=== PATIENT | male | born 1950 | race Caucasian/White ===

== ENCOUNTER 2020-01-08 04:48 | Inpatient (IN) | payer MEDICARE, MEDICAID, SELFPAY ==
[2020-01-08] VITALS (19 sets, daily range): BP systolic 79–111; BP diastolic 40–60; PULSE 100–122; RESP 20–28; TEMP 36.3–37.3; O2SAT 96–98; BMI 25.8
--- NOTE | ~2020-01-08 | XR_ITS ---
EXAMINATION: XR chest 1V portable EXAM DATE: 01/08/2020 10:51 INDICATION: Shortness of breath, congestion, flulike symptoms. TECHNIQUE: Portable AP frontal chest x-ray was obtained. Comparison is made to prior examination from 01/08/2020. FINDINGS: There is patchy bilateral atelectasis and/or pneumonia. There are small bilateral pleural e ffusions. There is cardiomegaly and congestion.There are bony degenerative changes. IMPRESSION: 1. Patchy bibasilar atelectasis and/or pneumonia. 2. Cardiomegaly and small pleural effusions. Reviewed, dictated and finalized at location A. HITE DISK ASSEMBLER
--- NOTE | ~2020-01-08 | US_ITS ---
EXAMINATION: US venous doppler [facility] DATE: 01/08/2020 13:20 INDICATION: Shortness of breath, elevated d-dimer TECHNIQUE: Mason scale images without and with compression and Doppler images of the bilateral lower e xtremity veins were obtained. COMPARISON: None. FINDINGS: The right common femoral vein, profunda femoral vein, femoral vein, popliteal vein, peroneal trunk, p osterior tibial veins, and greater saphenous vein are patent. The left common femoral vein, profunda femoral vein, femoral vein, popliteal vein, peroneal trunk, po sterior tibial veins, and greater saphenous vein are patent. IMPRESSION: 1. Patent bilateral lower extremity veins. No evidence of deep venous thrombosis. Reviewed, dictated and finalized at location A. ANT PRINT OPERATOR IMPRESSION: 1. Patent bilateral lower extremity veins. No evidence of deep venous thrombosi s.
--- NOTE | ~2020-01-08 | XR_ITS ---
XR chest 1V portable DATE: 01/08/2020 05:29 INDICATION: Cough, shortness of breath TECHNIQUE: Portable AP chest on 01/08/2020 at 0525 hours COMPARISON: 04/23/2019 AP and lateral views FINDINGS: There is patchy infiltrate/consolidation in the right mid and lower lung zone suggestive of pneumonia. Aspiration is an additional consideration. There is mild infiltrate and/or atelectasis at the left lung base. There are low lung volumes. Mild blunting of the costophrenic angles suggests small pleural effusions. Heart size is not optimally evaluated due to magnification associated with AP projection and rotation . Pulmonary vascularity appears within normal limits. No pneumothorax. Left apical capping. Osteopenia. Osteoarthritic changes at the glenohumeral joints. IMPRESSION: Patchy infiltrate/consolidation in the right lower lung zones suggesting pneumonia. Aspir ation is an additional consideration Mild infiltrate or atelectasis at the left lung base. Small pleural effusions Reviewed, dictated and finalized at location A. T CLOSER IMPRESSION: Patchy infiltrate/consolidation in the right lower lung zones sugge sting pneumonia. Aspiration is an additional consideration Mild infiltrate or atelectasis at the left lung base. Small pleural effusions
--- NOTE | 2020-01-08 04:56 | ECG_ITS ---
Measurements Intervals [place] Rate: 118 P: 33 MI: 170 QRS: -4 QRSD: 101 T: 104 QT: 317 QTc: 446 Interpretive Statements SINUS TACHYCARDIA EARLY PRECORDIAL R/S TRANSITION VOLTAGE CRITERIA FOR LVH INFERIOR INFARCT, AGE INDETERMINATE ST-T WAVE ABNORMALITY IN LATERAL LEADS- CONSIDER ISCHEMIA BASELINE ARTIFACT- AVF ABNORMAL ECG Electronically Signed On 01-08-2020 7:15:59 RESIDENTIAL THERAPIST by Brian Hwang D.O.
--- NOTE | 2020-01-08 05:04 | ED.SOB ---
HPI - SOB/Dyspnea General Chief Complaint: Shortness of Breath/Dyspnea Stated Complaint: SOB Source: EMS Mode of arrival: ambulatory Limitations: language barrier and altered mental status History of Present Illness HPI Narrative: 69 y.o. with asthma and chronic systolic heart failure became SOB last PM. EMS contacted ~ 4:00. Pt's pulse ox of 76% on room air. Pt obtunded on arrival which improved with oxygen. Pt is poor historian. States has been coughing sometimes. Most questions go unanswered. Context: other (Influenza is prominent in the community.) Related Data Home oxygen amount: none Home Medications Medication Instructions Recorded Confirmed carvedilol 6.25 mg tablet 6.25 mg PO BID tablet 11/28/19 01/08/20 clotrimazole 1 % topical cream 1 applic TOPICAL Q12H 11/28/19 01/08/20 ferrous sulfate 325 mg (65 mg 325 mg PO DAILY 11/28/19 01/08/20 iron) tablet fluticasone 250 mcg-salmeterol 50 1 inhalation INHALATION BID 11/28/19 01/08/20 mcg/dose blistr powdr for inhalation furosemide 20 mg tablet 20 mg PO DAILY tablet 11/28/19 01/08/20 hydrocortisone 1 % topical cream 1 applic TOPICAL BID PRN 11/28/19 01/08/20 ipratropium 20 mcg-albuterol 100 1 puff INHALATION QID 11/28/19 01/08/20 mcg/actuation mist for inhalation ketoconazole 2 % topical cream 1 applic TOPICAL WEEKLY gm 11/28/19 01/08/20 lisinopril 5 mg tablet 5 mg PO DAILY 11/28/19 01/08/20 omeprazole 20 mg capsule,delayed 20 mg PO DAILY 11/28/19 01/08/20 release potassium chloride 10 mEq 20 meq PO DAILY 11/28/19 01/08/20 capsule,extended release pravastatin 20 mg tablet 20 mg PO DAILY 11/28/19 01/08/20 prednisone 10 mg tablet 10 mg PO DAILY 11/28/19 01/08/20 quetiapine 200 mg tablet 200 mg PO DAILY tablet 11/28/19 01/08/20 spironolactone 25 mg tablet 12.5 mg PO DAILY 11/28/19 01/08/20 famotidine 20 mg tablet 20 mg PO BID 12/02/19 01/08/20 Allergies Allergy/AdvReac Type Severity Reaction Status Date / Time No Known Allergies Allergy Verified 12/02/19 15:16 Review of Systems Review of Systems: ROS unobtainable: other (limited ROS because of somnolence and mental status. ) Cardiovascular: Cardiovascular: Denies chest pain Respiratory: Respiratory: Reports cough (occasional) PMFSH Past Medical History Medical History Addisons disease Anxiety Asthma Elevated lipids GERD (gastroesophageal reflux disease) Heart failure chronic systolic heart failure. 09/06 echo:EF = 20-25%, mod. LV dysfunction Mental disability Surgical History Surgical History History of cardiac catheterization Social History Social History Smoking status: Never smoker Alcohol intake: never Substance use: never Additional living arrangements comments: [facility] - assisted living. Gender identity (if verbalized by the patient): Male Spiritual care concerns: No Agree to blood products: Yes Exam Narrative: Exam Narrative: Eyes open with voice. Answers questions. Occasional cough. Knows he's in a hospital. Const: Limitations: altered mental status HENMT: Head: normal to inspection Face and sinus: no sinus tenderness Mouth: Yes moist mucous membranes Eyes: EOM: EOMs intact bilaterally Neck: Neck: no lymphadenopathy Chest: Chest palpation & inspection: normal inspection of the chest Other: no intercostal retractions. Resp: Auscultation: wheezes and breath sounds absent Cardio: Rate: regular rate Rhythm: regular rhythm Heart sounds: no murmurs GI: GI Palp: Yes Soft to palpation and No Tenderness to palpation present (GI) Neuro: General: moves all extremities Extrem: General: no pedal edema and edema Psych: Mental Status: mental status grossly normal Thought content: Yes other (unable to assess. ) Course Course Emergency Course: Pt has right sided pne
[2020-01-08 05:24] LABS: Hematocrit 35.6 % (37.0-46.0); Hemoglobin 11.9 g/dL (12.4-15.3); Mean Corpuscular HGB Conc 33.4 g/dL (32.0-36.0); Mean Corpuscular Hemoglobin 32.2 pg (27.0-31.0); Mean Corpuscular Volume 96.2 fL (78.0-102.0); Mean Platelet Volume 10.6 fl (8.7-11.0); Platelet Count Result 206 K/mm3 (150-420); Red Cell Distribution Width 13.6 % (11.6-14.4); White Blood Count 13.3 K/mm3 (4.8-10.8)
[2020-01-08 05:31] LABS: Base Excess ABG 0.9 mmol/L (0-2); Device NASAL CANNULA; HCO3 ABG 23.6 mmol/L (23-29); Modified Allen's Test Pass; Oxygen Content ABG 16.7 %vol (16.0-22.0); Oxygen Saturation ABG 92.8 % (95-97); Oxyhemoglobin 92.2 % (94-100); PCO2 ABG 32.1 mmHg (35-45); PO2 ABG 58.9 mmHg (75-85); Site Drawn RIGHT RADIAL; Total Hemoglobin 12.9 g/dL; pH ABG 7.49 (7.35-7.45)
[2020-01-08 05:45] LABS: Lactic Acid 2.1 mmol/L (0.4-2.0)
[2020-01-08 05:52] LABS: Alanine Aminotransferase 30 U/L (16-63); Albumin Level 3.3 g/dL (3.4-5.0); Alkaline Phosphatase 77 U/L (46-116); Anion Gap 17.2 mmol/L (7-16); Aspartate Amino Transferase 21 U/L (15-37); Bilirubin,Total 1.2 mg/dL (0.00-1.00); Blood Urea Nitrogen 28 mg/dL (7-18); Calcium 8.9 mg/dL (8.5-10.1); Carbon Dioxide 25 mmol/L (21-32); Chloride 100 mmol/L (98-108); Estimated Glomerular Filt Rate 28; Glucose 107 mg/dL (70-99); Osmolality Calculated 291 mOsm/kg (285-295); Potassium 4.2 mmol/L (3.5-5.1); Sodium 138 mmol/L (136-145); Total Protein 7.1 g/dL (6.4-8.2)
[2020-01-08 05:56] LABS: Influenza Control Valid (Valid)
[2020-01-08 05:56] LABS: BNP 238 pg/mL (0-100); Troponin I < 0.02 ng/mL (0.00-0.056)
[2020-01-08] MEDS: SODIUM CHLORIDE 0.9% IV 500 ML 999 ML IV CONT (06:00)
[2020-01-08] MEDS: IPRATROPIUM 0.5 MG/ALBUTEROL SULFATE 2.5 MG AMPUL.NEB 3 ML INHALATION ×2 (06:16→12:35)
--- NOTE | 2020-01-08 06:38 | PC.NURSE ---
call to willy lyn md do resident urgent care for admission.
[2020-01-08] MEDS: HYDROCORTISONE SODIUM SUCCINATE 100 MG/2 ML VIAL IV PUSH (07:50)
--- NOTE | 2020-01-08 08:04 | PC.NURSE ---
pt to floor per stretcher with nanda rivera tech.
--- NOTE | 2020-01-08 08:07 | PC.NURSE ---
Patient brought from ED per stretcher. Able to pivot transfer to bed with stand by assist. IV in left wrist dislodged. IV site discontinued. Portillo catheter in place. Patient alert, drowsy. Answers questions when prompted. Patient's brother Jose De Jesus arrived. Patient and guardian oriented to room, call light within reach
[2020-01-08 10:27] LABS: Add Urine Microscopic? NO; Appearance Urine Clear (Clear); Bilirubin Urine Negative (Negative); Blood Urine Negative (Negative); Color Urine Yellow (Yellow); Glucose Urine UA Negative (Negative); Ketones Urine Negative (Negative); Leukocyte Esterase Ur Negative (Negative); Nitrate Urine Negative (Negative); Protein Urine Negative (Negative); Specific Grav Ur 1.015 (1.010-1.020); Urobilinogen Urine 0.2 mg/dL (0.2-1.0)
[2020-01-08] MEDS: ENOXAPARIN 30 MG/0.3 ML SYRINGE SUB-Q (10:28)
[2020-01-08] MEDS: SODIUM CHLORIDE 0.9% IV 1,000 ML 125 ML IV CONT (10:29)
--- NOTE | 2020-01-08 10:38 | PM.IMHP ---
H&P: HPI History of Present Illness Chief complaint: SOB <Ena Davis, FREIGHT SALES BROKER - Last Filed: 01/08/20 14:27> Narrative: Robles Pate is a 69 year old male admitted yesterday evening via ambulance from [place], [place] due to hypoxia with hypoxemia ([id number]% on room air), worsening shortness of breath, dyspnea, wheezing, cough, obtunded with altered mental status, and hypotension. SBPs 70-80s for arms and extremities cold and pale to the touch. Oxygenation improved his mental status per ED physician report. He was found + Influenza A and was started on IV steroids and Antivirals. He has a history of Mental disability, asthma, Cardiomyopathy, Heart Failure (with 2017 Echo:EF = 20-25%, mod. LV dysfunction), Chronic Systolic Heart Failure, Congestive Heart Failure, learning deficits, Roger's disease, Anxiety, Elevated lipids, GERD (gastroesophageal reflux disease). Robles is a poor health historian and I have spoken to his brother. History of Cardiac Catherization. His brother states that Robles has no alcohol use or history, and no drug use or history, and has never smoked. ED physician has discussed with Jose De Jesus (ZENOBIA) possible palliative care if Robles does not improve. He was started on IV Azithro and IV Rocephin. CXR shows what appears to be bilateral pneumonia, but image is poor quality, so ordered repeat CXR to review. Upon admission to the floor as Inpatient, continuous pulse oximetry monitoring, sputum culture, incentive spirometry, mucinex, and IV Vanc was also started. He continues to deny headache, chest pain, or pain of any location. He is also having acute renal failure with creatinine 2.31 (last creatinine on 04/23/2019 was 1.31 with GFR 58) possibly due to dehydration and/or level of heart failure with a component of possible multi-organ failure. Was given 250 ml IV bolus in ED and started on IVFs continuously at 125ml/hr with continuous Telemetry monitoring. Currently holding home doses of Lasix, Spironolactone, and Lisinopril. Upon discussion, the patient knows his birthdate, that he is in the hospital, but is unable to tell me the town or the month or the season at this time. He does recognize his brother Jose De Jesus and has made specific food requests to nursing staff. Upon discussion with Robles's POA Jose De Jesus, Jose De Jesus is ok with the use of BiPap and any non-invasive respiratory support needed, and also ok with IV medications as needed, including pressors and inotropes. He has been a resident of [facility] for some time now, uses his own walker for ambulation, has assistance with his ADLs such as bathing, and is reportedly continent of urine and stool with no use of Depends. He does have a history of mental disabilities in grade school and high school. He is able to answer simple questions and carry out simple commands. Robles is a DNI and DNR status. (neither family or patient wants breathing tube/intubation/or life support). His PCP is Dr. Orourke of [place], [place]. He has two brothers that share POA control, Jose De Jesus Pate of [place], [place] and Kyler Pate of [place], [place]. Upon rounds today, Dr. Tamez and I feel that the patient should be transferred to receive higher level of care, including inotropes and further continuous respiratory support, that [facility] is unable to provide at this time. I have called [facility] and [facility] of [place], [place]. to start the transfer process, but was told that both hospitals are full and cannot take patient's at this time. I currently have also called [facility] and now waiting for them to return my phone call. <Ena Davis FREIGHT SALES BROKER - Last Filed: 01/08/20 14:27> Review of Systems Review of Systems: All systems reviewed & are unremarkable except as noted in HPI and below <Ena Davis NP - Last Filed: 01/08/20 14:27> ROS unobtainable: other (limited ROS because of somnolence and mental status. ) <Ena Davis NP - Last Filed:
[2020-01-08 11:11] LABS: D Dimer 2.44 mg/L (0.19-0.50)
[2020-01-08 11:21] LABS: Creatine Kinase 117 U/L (39-308); Magnesium 1.7 mg/dL (1.8-2.4); Phosphorus 2.2 mg/dL (2.6-4.7); Troponin I < 0.02 ng/mL (0.00-0.056)
[2020-01-08 13:08] LABS: Base Excess ABG -2.8 mmol/L (0-2); HCO3 ABG 19.6 mmol/L (23-29); Oxygen Content ABG 16.5 %vol (16.0-22.0); Oxygen Saturation ABG 99.2 % (95-97); Oxyhemoglobin 97.5 % (94-100); PCO2 ABG 27.2 mmHg (35-45); PO2 ABG 194.8 mmHg (75-85); Total Hemoglobin 11.7 g/dL; pH ABG 7.48 (7.35-7.45)
[2020-01-08 13:09] LABS: Hematocrit 31.3 % (37.0-46.0); Hemoglobin 10.5 g/dL (12.4-15.3); Mean Corpuscular HGB Conc 33.5 g/dL (32.0-36.0); Mean Corpuscular Hemoglobin 32.1 pg (27.0-31.0); Mean Corpuscular Volume 95.7 fL (78.0-102.0); Mean Platelet Volume 10.9 fl (8.7-11.0); Platelet Count Result 183 K/mm3 (150-420); Red Blood Count 3.27 M/mm3 (4.70-6.10); Red Cell Distribution Width 13.6 % (11.6-14.4); White Blood Count 16.6 K/mm3 (4.8-10.8)
[2020-01-08 13:10] LABS: Modified Allen's Test Pass; Site Drawn LEFT RADIAL
[2020-01-08 13:22] LABS: Alanine Aminotransferase 21 U/L (16-63); Albumin Level 2.7 g/dL (3.4-5.0); Alkaline Phosphatase 60 U/L (46-116); Anion Gap 14.9 mmol/L (7-16); Aspartate Amino Transferase 19 U/L (15-37); Bilirubin,Total 1.1 mg/dL (0.00-1.00); Blood Urea Nitrogen 31 mg/dL (7-18); Calcium 7.6 mg/dL (8.5-10.1); Carbon Dioxide 22 mmol/L (21-32); Chloride 101 mmol/L (98-108); Estimated CRCL calculation 23 ml/min; Estimated Glomerular Filt Rate 23; Glucose 174 mg/dL (70-99); Osmolality Calculated 286 mOsm/kg (285-295); Potassium 4.9 mmol/L (3.5-5.1); Sodium 133 mmol/L (136-145); Total Protein 6.1 g/dL (6.4-8.2)
[2020-01-08 13:28] LABS: BNP 255 pg/mL (0-100)
[2020-01-08 13:33] LABS: Device NASAL CANNULA
[2020-01-08 13:34] LABS: Lactic Acid 1.9 mmol/L (0.4-2.0)
[2020-01-08] MEDS: MAGNESIUM SULF 2 GM/WATER 50ML 2 GM/50 ML BAG IVPB (13:38)
[2020-01-08] MEDS: ALBUMIN HUMAN 5% 25 GM/500 ML BTL IV CONT (15:14)
--- NOTE | 2020-01-08 15:18 | PM.DS ---
DS: Diagnosis Admitting Diagnosis Admitting Diagnosis: Sepsis, unspecified organism Septic Shock Pneumonia Influenza A <Ena Davis NP - Last Filed: 01/08/20 16:04> Discharge Diagnosis (1) Sepsis associated hypotension: Onset Date: ~01/07/20 <Ena Davis NP - Last Filed: 01/08/20 16:04> Code(s): A41.9 - Sepsis, unspecified organism; I95.9 - Hypotension, unspecified <Ena Davis NP - Last Filed: 01/08/20 16:04> Status: Acute <Ena Davis NP - Last Filed: 01/08/20 16:04> Assessment and Plan: WBC elevated>13 with elevated Lactic Acid 2.1 hypoxia with hypoxemia ([id number]% on room air), worsening shortness of breath, dyspnea, wheezing, cough, obtunded with altered mental status, hypotension. SBPs 70-80s for arms and extremities cold and pale to the touch. Possibly multifactorial: due to + Influenza A, bilateral pneumonia, heart failure with EF<35%, renal failure. started on IV Azithro and IV Rocephin. CXR shows what appears to be bilateral pneumonia, but image is poor quality, so ordered repeat CXR to review. continuous pulse oximetry monitoring, sputum culture, incentive spirometry, mucinex, and IV Vanc was also started acute renal failure with creatinine 2.31 (last creatinine on 04/23/2019 was 1.31 with GFR 58) possibly due to dehydration and/or level of heart failure with a component of possible multi-organ failure. given 250 ml IV bolus in ED and started on IVFs continuously at 125ml/hr with continuous Telemetry monitoring. Current lower extremity SBPs>90 with MAPs >60. Upper extremities SBPs>80 with MAPs>50 Currently holding home doses of Lasix, Spironolactone, and Lisinopril. Treating with IVFs and IV boluses, checking Neuro status, ausculation of lungs periodically throughout the day, checking cap refill and closely monitoring VS (BPs, HR, SpO2 levels) Repeating Lactic Acid, BNP, ABG, CBC, and CMP this afternoon. Robles is a DNI and DNR status. (neither family or patient wants invasive breathing tube/intubation/or mechanical ventilator life support). PCP is Dr. Orourke of [place], [place]. his two brothers that share POA control, Jose De Jesus Pate of [place], [place] and Kyler Rio of [place], [place]. ZENOBIA Dela Cruz is ok with use of PICC and Central Line IV catheter placement, IV medications including inotropes and pressors, as well as CPAP/BIPAP and mask/hi flow, and any non-invasive respiratory support needed, and also ok with IV medications as needed, Upon rounds today, Dr. Tamez and I feel that the patient should be transferred to receive higher level of care, including inotropes and further continuous respiratory support, that [facility] is unable to provide at this time. I have called [facility] and [facility] of [place], [place]. to start the transfer process, but was told that both hospitals are full and cannot take patient's at this time. I currently have also called [facility] and now waiting for them to return my phone call. <Ena Davis NP - Last Filed: 01/08/20 16:04> (2) Renal failure (ARF), acute on chronic: Onset Date: ~01/07/20 <Ena Davis NP - Last Filed: 01/08/20 16:04> Qualifiers: Acute renal failure type: unspecified Chronic kidney disease stage: stage 4 (severe) Qualified Code(s): N17.9 - Acute kidney failure, unspecified; N18.4 - Chronic kidney disease, stage 4 (severe) <Ena Davis NP - Last Filed: 01/08/20 16:04> Code(s): N17.9 - Acute kidney failure, unspecified; N18.9 - Chronic kidney disease, unspecified <Ena Davis NP - Last Filed: 01/08/20 16:04> Status: Acute <Ena Davis NP - Last Filed: 01/08/20 16:04> Assessment and Plan: attempting to maintain MAPs >65 ideally, MAPs >60 minimally per BLE blood pressure checks. acute renal failure with creatinine 2.31 (last creatinine on 04/23/2019 was 1.31 with GFR 58) possibly due to
[2020-01-08] MEDS: SODIUM CHLORIDE 0.9% IV 1,000 ML 500 ML IV CONT (15:37)
[2020-01-08] MEDS: FUROSEMIDE INJ 40 MG/4 ML VIAL IV PUSH (15:55)
--- NOTE | 2020-01-08 16:30 | PC.NURSE ---
[facility] here for patient transport to [facility] in [place]. Belongings sent with patient. Receiving facility notified
[2020-01-11 05:07] LABS: Cortisol Random 19.1 mcg/dL (***)
[2020-01-11 05:35] LABS: Adrenocorticotropic Hormone 22 pg/mL (6-50)
== END 2020-01-08 16:30 | disposition short-term general hospital (02) | DRG 871 ==
LOC: CHSED 07:03 → CHS2ND 07:04
PROVIDERS: Nurse Practitioner; Admitting Provider Family Medicine; Emergency Provider Family Medicine; PCP Internal Medicine; Visit Provider Family Medicine
DX: J10.00 Influenza due to other identified influenza virus with unspecified type of pneumonia (principal); N17.9 Acute kidney failure, unspecified; N18.4 Chronic kidney disease, stage 4 (severe); I50.22 Chronic systolic (congestive) heart failure; E27.1 Primary adrenocortical insufficiency; J45.909 Unspecified asthma, uncomplicated; E78.5 Hyperlipidemia, unspecified; K21.9 Gastro-esophageal reflux disease without esophagitis; F79 Unspecified intellectual disabilities; A41.89 Other specified sepsis; I42.9 Cardiomyopathy, unspecified; R65.20 Severe sepsis without septic shock
CPT/HCPCS: 36415; 36600; 71045; 80053; 81003; 82024; 82533; 82550; 82553; 82805; 83605; 83735; 83880; 84100; 84484; 85027; 85380; 87040; 87081; 87086; 87804; 93005; 93970; 94640; 96365; 96375; 99283; 99285; A9270; J0456; J0696; J1650; J1720; J1940; J3370; J3475; J7030; J7040; P9045

== ENCOUNTER 2020-04-01 17:28 | Observation (INO) | payer MEDICARE, MEDICAID, SELFPAY ==
[2020-04-01] VITALS (9 sets, daily range): BP systolic 119–150; BP diastolic 71–107; PULSE 89–118; RESP 15–24; TEMP 36.5–37; O2SAT 95–100; BMI 25.0
--- NOTE | ~2020-04-01 | XR_ITS ---
EXAMINATION: XR chest 2V EXAM DATE: 04/01/2020 18:18 INDICATION: Syncope. TECHNIQUE: Frontal and lateral projections of the chest obtained and reviewed. Comparison is made to prior examination from 01/08/2020. FINDINGS: The cardiac silhouette is enlarged. Cardiac silhouette is stable in size compared to prior exam. Linear by basilar scarring or atelectasis again noted. No confluent consolidation, pneumothorax or pleural effusion suspected. There are bony degenerative changes. Thoracolumbar chronic appearing compression fractures. IMPRESSION: 1. Cardiomegaly. 2. Basilar linear atelectasis. Reviewed, dictated and finalized at location A.
--- NOTE | ~2020-04-01 | CT_ITS ---
EXAMINATION: CT brain wo con EXAM DATE: 04/01/2020 18:17 INDICATION: Syncope. TECHNIQUE: Spiral CT of the head was performed without contrast. Axial, coronal and sagittal images were reviewed. The dose-length product (DLP) for this examination was 756.67 mGy-cm. The exposure w as tailored according to patient size, and iterative reconstruction (ASIR) was used as additional dos e reduction technique. Comparison is made to prior examination from 02/06/2019. FINDINGS: There is no acute intraparenchymal hemorrhage. No evidence of intraparenchymal brain mass lesion. No evidence of acute infarction. Please note that initial head CT has limited sensitivity f or small or acute infarctions. There is mild periventricular and subcortical hypodensity, nonspecific but probably related to small vessel ischemic disease. There is moderate prominence of the sulci a nd ventricles related to cerebral atrophy. There is intracranial carotid arteriosclerosis. There a re no extra-axial collections. There is no mass effect or midline shift. The orbits are unremarkabl e. Soft tissue is unremarkable. Mild mucoperiosteal thickening. IMPRESSION: 1. No acute intracranial findings. 2. Chronic age related findings. Reviewed, dictated and finalized at location A.
--- NOTE | ~2020-04-01 | CT_ITS ---
EXAMINATION: CT chest abdomen pelvis wo con DATE: 04/02/2020 11:55 INDICATION: Nausea and vomiting. TECHNIQUE: Computed tomography (CT) of the chest, abdomen, and pelvis was performed without intraveno us contrast. Automated exposure control and iterative reconstruction technique were employed. The dos e-length product was 627.21 mGy-cm. COMPARISON: None FINDINGS: CHEST CT: There is mild scarring at the lung apices. There is mild atelectasis in the inferior lungs. A calcifi ed right lung nodule is consistent with old granulomatous disease. There are trace pleural effusions. There is left ventricular enlargement of the heart. No pericardial effusion. There are coronary jeremy ry calcifications. There is bilateral gynecomastia. There are chronic burst fractures of T8-T11. Ther e is mild chronic anterior wedging of T5-T7 vertebral bodies. ABDOMEN/PELVIS CT: The liver, spleen, gallbladder, pancreas, and adrenal glands are normal. There are cysts in the kidne ys measuring up to 5.2 cm on the left. There is no urolithiasis. The prostate is moderately enlarged. There is diverticulosis of the colon without evidence of diverticulitis There are no dilated loops o f bowel. The appendix is normal. There is a small sliding hiatal hernia. There are no pathologically enlarged lymph nodes. There is no free intraperitoneal fluid. There is an umbilical hernia containing fat. There is advanced right hip osteoarthritis. IMPRESSION: 1. Umbilical hernia containing fat. Reviewed, dictated and finalized at location A.
--- NOTE | 2020-04-01 17:38 | ED.SYNCOPE ---
HPI - Syncope General Chief Complaint: Syncope Stated Complaint: AMB Time Seen by Provider: 04/01/20 17:30 Source: patient and EMS Mode of arrival: EMS History of Present Illness HPI narrative: 69-year-old man with a history of heart failure, asthma, and Juana Diaz's disease brought to the emergency department by EMS after he felt like he had a hot flash. His spinning bath person said he seemed a bit confused and out of it. He did not lose consciousness and on arrival by EMS he was sitting at the kitchen table and alert. Patient denies headache, chest pain. History is limited due to his mental disability. MD complaint: other (Hubbard hot flash, altered mental status) Onset (ago): hour(s) (1) -: minutes(s) Prodromal symptoms: none Injuries sustained associated with event: none Current symptoms: none Treatments prior to arrival: none Related Data Home Medications Medication Instructions Recorded Confirmed carvedilol 6.25 mg tablet 6.25 mg PO BID tablet 11/28/19 04/01/20 clotrimazole 1 % topical cream 1 applic TOPICAL Q12H 11/28/19 04/01/20 ferrous sulfate 325 mg (65 mg 325 mg PO DAILY 11/28/19 04/01/20 iron) tablet fluticasone 250 mcg-salmeterol 50 1 inhalation INHALATION BID 11/28/19 04/01/20 mcg/dose blistr powdr for inhalation furosemide 20 mg tablet 20 mg PO DAILY tablet 11/28/19 04/01/20 hydrocortisone 1 % topical cream 1 applic TOPICAL BID PRN 11/28/19 04/01/20 ipratropium 20 mcg-albuterol 100 1 puff INHALATION QID 11/28/19 04/01/20 mcg/actuation mist for inhalation ketoconazole 2 % topical cream 1 applic TOPICAL WEEKLY gm 11/28/19 04/01/20 lisinopril 5 mg tablet 5 mg PO DAILY 11/28/19 04/01/20 omeprazole 20 mg capsule,delayed 20 mg PO DAILY 11/28/19 04/01/20 release potassium chloride 10 mEq 20 meq PO DAILY 11/28/19 04/01/20 capsule,extended release pravastatin 20 mg tablet 20 mg PO HS 11/28/19 04/01/20 prednisone 10 mg tablet 10 mg PO DAILY 11/28/19 04/01/20 quetiapine 200 mg tablet 200 mg PO HS tablet 11/28/19 04/01/20 spironolactone 25 mg tablet 12.5 mg PO DAILY 11/28/19 04/01/20 famotidine 20 mg tablet 20 mg PO BID 12/02/19 04/01/20 carbamide peroxide [Debrox] 3 drp OTIC (EAR) WEEKLY 04/01/20 04/01/20 ergocalciferol (vitamin D2) 50,000 unit PO WEEKLY 04/01/20 04/01/20 [Vitamin D2] phenyleph-min oil-petrolatum 1 applic NC QAM AND QHS PRN 04/01/20 04/01/20 [Preparation H] triamcinolone acetonide 1 applic TOPICAL PRN 04/01/20 04/01/20 Allergies Allergy/AdvReac Type Severity Reaction Status Date / Time No Known Allergies Allergy Verified 12/02/19 15:16 Review of Systems Review of Systems: ROS unobtainable: Yes unobtainable due to mental status PMFSH Past Medical History Medical History Addisons disease Anxiety Asthma Elevated lipids GERD (gastroesophageal reflux disease) Heart failure (~2015) chronic systolic heart failure. 09/06 echo:EF = 20-25%, mod. LV dysfunction Mental disability (Unknown) Surgical History Surgical History History of cardiac catheterization Social History Social History Smoking status: Never smoker Alcohol intake: never Substance use: never Substance use type: does not use Additional living arrangements comments: [facility] - assisted living. Gender identity (if verbalized by the patient): Male Spiritual care concerns: No Agree to blood products: Yes Exam Const: General: no acute distress and alert Limitations: behavioral limitations HENMT: Head: normal to inspection Ears: external ears normal, TM's normal bilaterally and EAC's normal Mouth: Yes Normal oral and palatal mucosa present and Yes moist mucous membranes Throat: posterior oropharynx normal Eyes: Conjunctivae: conjunctivae normal Pupils: Equal, round and reactive pupils present EOM: EOMs intact bila
--- NOTE | 2020-04-01 17:41 | ECG_ITS ---
Measurements Intervals [place] Rate: 101 P: 18 ME: 152 QRS: -8 QRSD: 99 T: 63 QT: 319 QTc: 415 Interpretive Statements SINUS TACHYCARDIA EARLY PRECORDIAL R/S TRANSITION LEFT VENTRICULAR HYPERTROPHY AND ST-T CHANGE CONSIDER INFERIOR INFARCT, AGE INDETERMINATE BORDERLINE ST-T WAVE ABNORMALITY- HIGH LATERAL LEADS ABNORMAL ECG Electronically Signed On 04-01-2020 19:47:17 CDT by Brian Hwang D.O.
[2020-04-01 18:01] LABS: Basophils Absolute Auto 0.02 K/mm3 (0.00-0.10); Basophils Percent Auto 0.2 % (0.0-1.0); Eosinophils Absolute Auto 0.02 K/mm3 (0.02-0.50); Eosinophils Percent Auto 0.2 % (1.0-6.0); Hematocrit 37.1 % (37.0-46.0); Hemoglobin 12.1 g/dL (12.4-15.3); Immature Granulocyte Absolute 0.06 K/mm3 (0.00-0.00); Immature Granulocyte Percent A 0.7 % (0.0-0.0); Lymphocytes Absolute Auto 0.85 K/mm3 (1.10-4.50); Lymphocytes Percent Auto 10.1 % (18.0-42.0); Mean Corpuscular HGB Conc 32.6 g/dL (32.0-36.0); Mean Corpuscular Hemoglobin 31.4 pg (27.0-31.0); Mean Corpuscular Volume 96.4 fL (78.0-102.0); Mean Platelet Volume 10.3 fl (8.7-11.0); Monocytes Absolute Auto 0.73 K/mm3 (0.10-0.90); Monocytes Percent Auto 8.6 % (2.0-11.0); Neutrophils Absolute Auto 6.8 K/mm3 (1.7-7.2); Neutrophils Percent Auto 80.2 % (50.0-70.0); Platelet Count Result 267 K/mm3 (150-420); Red Blood Count 3.85 M/mm3 (4.70-6.10); Red Cell Distribution Width 13.9 % (11.6-14.4); White Blood Count 8.5 K/mm3 (4.8-10.8)
[2020-04-01 18:21] LABS: Alanine Aminotransferase 28 U/L (16-63); Albumin Level 3.6 g/dL (3.4-5.0); Alkaline Phosphatase 96 U/L (46-116); Anion Gap 15.8 mmol/L (7-16); Aspartate Amino Transferase 18 U/L (15-37); Bilirubin,Total 0.4 mg/dL (0.00-1.00); Blood Urea Nitrogen 25 mg/dL (7-18); Carbon Dioxide 25 mmol/L (21-32); Chloride 102 mmol/L (98-108); Estimated Glomerular Filt Rate 43; Glucose 101 mg/dL (70-99); Osmolality Calculated 290 mOsm/kg (285-295); Potassium 4.8 mmol/L (3.5-5.1); Sodium 138 mmol/L (136-145); Total Protein 7.2 g/dL (6.4-8.2)
[2020-04-01 18:22] LABS: Lactic Acid Reflex 1.4 mmol/L (0.4-2.0)
[2020-04-01 18:23] LABS: CRP 1.4 mg/dL (0.0-0.9); Troponin I < 0.02 ng/mL (0.00-0.056)
[2020-04-01 18:30] LABS: D Dimer 0.79 mg/L (0.19-0.50)
[2020-04-01 18:42] LABS: Occult Blood Negative (Negative)
[2020-04-01 19:06] LABS: BNP 65.1 pg/mL (0-100)
--- NOTE | 2020-04-01 20:11 | ADMGEN ---
This patient, Robles Pate, was admitted to 2nd Floor Room 204-2. Patient/family oriented to hospital policies and general routines including ID bracelet, bed and alarms, visiting hours, pain management, procedures, bathroom and other care routines, personal items, smoking policy, room service/diet, and visiting hours. Valuables list has been completed. Information on how to activate the Rapid Response Team has been discussed. Patient/Family are encouraged to report perceived risks to care and to ask questions if they do not understand what they are told or what they should do.
[2020-04-01] MEDS: SODIUM CHLORIDE 0.9% IV 1,000 ML 100 ML IV CONT (21:32)
[2020-04-01] MEDS: PRAVASTATIN SODIUM 20 MG TABLET PO (21:33)
[2020-04-01] MEDS: MICONAZOLE NITRATE 2% CREAM 30 GM TUBE 1 APPLIC TOPICAL (21:33)
[2020-04-01] MEDS: QUEtiapine FUMARATE 100 MG TABLET 200 MG PO (21:33)
--- NOTE | 2020-04-01 23:00 | PC.NURSE ---
pt resting in bed, denies any pain, N/V, tolerating oral fluids, iv fluids infusing per order
--- NOTE | 2020-04-02 | PC.NURSE ---
pt resting in bed, call light and belongings within reach, iv fluids infusing per order, pt voided clear yellow urine
[2020-04-02 00:09] LABS: Add Urine Microscopic? NO; Appearance Urine Clear (Clear); Bilirubin Urine Negative (Negative); Blood Urine Negative (Negative); Color Urine Yellow (Yellow); Glucose Urine UA Negative (Negative); Ketones Urine Negative (Negative); Leukocyte Esterase Ur Negative LEU/UL (Negative); Nitrate Urine Negative (Negative); Protein Urine Negative (Negative); Urobilinogen Urine 0.2 mg/dL (0.2-1.0); pH Urine 6.5 (5.0-8.0)
[2020-04-02 00:23] LABS: Troponin I < 0.02 ng/mL (0.00-0.056)
--- NOTE | 2020-04-02 01:18 | PC.NURSE ---
pt sleeping, respirations even and regular, no evidence of distress noted, call light and belongings within reach
[2020-04-02 04:00] VITALS: BP 113/65; PULSE 96; RESP 18; TEMP 36.6; O2SAT 95
[2020-04-02 05:53] LABS: Basophils Absolute Auto 0.03 K/mm3 (0.00-0.10); Basophils Percent Auto 0.4 % (0.0-1.0); Eosinophils Absolute Auto 0.13 K/mm3 (0.02-0.50); Eosinophils Percent Auto 1.9 % (1.0-6.0); Hematocrit 33.8 % (37.0-46.0); Immature Granulocyte Absolute 0.05 K/mm3 (0.00-0.00); Immature Granulocyte Percent A 0.7 % (0.0-0.0); Lymphocytes Absolute Auto 0.94 K/mm3 (1.10-4.50); Lymphocytes Percent Auto 13.7 % (18.0-42.0); Mean Corpuscular HGB Conc 32.5 g/dL (32.0-36.0); Mean Corpuscular Hemoglobin 31.4 pg (27.0-31.0); Mean Corpuscular Volume 96.6 fL (78.0-102.0); Mean Platelet Volume 10.6 fl (8.7-11.0); Monocytes Percent Auto 13.1 % (2.0-11.0); Neutrophils Absolute Auto 4.8 K/mm3 (1.7-7.2); Neutrophils Percent Auto 70.2 % (50.0-70.0); Platelet Count Result 221 K/mm3 (150-420); White Blood Count 6.9 K/mm3 (4.8-10.8)
[2020-04-02 06:13] LABS: Lactic Acid Reflex 0.9 mmol/L (0.4-2.0)
[2020-04-02 06:21] LABS: Alanine Aminotransferase 24 U/L (16-63); Albumin Level 3.1 g/dL (3.4-5.0); Alkaline Phosphatase 75 U/L (46-116); Anion Gap 14.4 mmol/L (7-16); Aspartate Amino Transferase 15 U/L (15-37); Bilirubin,Total 0.6 mg/dL (0.00-1.00); Blood Urea Nitrogen 20 mg/dL (7-18); Calcium 8.7 mg/dL (8.5-10.1); Carbon Dioxide 26 mmol/L (21-32); Chloride 107 mmol/L (98-108); Estimated CRCL calculation 45 ml/min; Estimated Glomerular Filt Rate 51; Glucose 77 mg/dL (70-99); Osmolality Calculated 297 mOsm/kg (285-295); Potassium 4.4 mmol/L (3.5-5.1); Sodium 143 mmol/L (136-145); Total Protein 5.6 g/dL (6.4-8.2)
[2020-04-02 06:25] LABS: Troponin I < 0.02 ng/mL (0.00-0.056)
--- NOTE | 2020-04-02 07:30 | PC.NURSE ---
fluids infusing, no vomiting noted,
[2020-04-02] MEDS: SODIUM CHLORIDE 0.9% IV 1,000 ML 100 ML IV CONT (07:57)
[2020-04-02 08:00] VITALS: BP 120/69; PULSE 90; RESP 18; TEMP 36.4; O2SAT 95
--- NOTE | 2020-04-02 08:14 | PC.NURSE ---
Oriented to self, knows in a hospital cannot state where, unsure of date, not sure if this is normal for patient, converses easily, talks alot about brother
[2020-04-02 09:11] VITALS: PULSE 90
[2020-04-02] MEDS: MICONAZOLE NITRATE 2% CREAM 30 GM TUBE 1 APPLIC TOPICAL (09:11)
[2020-04-02] MEDS: carvediloL 6.25 MG TABLET PO (09:11)
[2020-04-02] MEDS: FAMOTIDINE 20 MG TABLET PO (09:12)
[2020-04-02] MEDS: PANTOPRAZOLE 40 MG TABLET PO (09:12)
[2020-04-02] MEDS: FUROSEMIDE 20 MG TABLET PO (09:12)
[2020-04-02] MEDS: predniSONE 10 MG TABLET PO (09:12)
[2020-04-02] MEDS: POTASSIUM CHLORIDE 20 MEQ TABLET PO (09:13)
[2020-04-02] MEDS: FERROUS SULFATE 324 MG TABLET PO (09:13)
[2020-04-02] MEDS: ENOXAPARIN 40 MG/0.4 ML SYRINGE SUB-Q (09:13)
[2020-04-02] MEDS: SALMET XINAFT/FLUTIC PROPIN 250 MCG/50 MCG INH CAP 1 PUFF INHALATION (09:14)
[2020-04-02] MEDS: NEOMYCIN/POLYMYXIN/BACITRACIN OINTMENT 15 GM TUBE 1 APPLIC TOPICAL (09:14)
[2020-04-02] MEDS: SPIRONOLACTONE 25 MG TABLET 12.5 MG PO (09:16)
--- NOTE | 2020-04-02 09:25 | PC.NURSE ---
Pills given, nauseated at this time and had emesis of water and some food particles, hospitalist aware and awaiting orders
[2020-04-02] MEDS: ONDANSETRON INJ 4 MG/2 ML VIAL IV PUSH (09:30)
--- NOTE | 2020-04-02 09:32 | PC.NURSE ---
zofran given for pain
[2020-04-02 11:04] LABS: Lipase 140 U/L (73-393)
--- NOTE | 2020-04-02 11:04 | PC.NURSE ---
Up to WC with SBA, to imaging for ct abdomen
--- NOTE | 2020-04-02 11:17 | PC.NURSE ---
Returned from imaging
--- NOTE | 2020-04-02 11:46 | PC.NURSE ---
Up in room with therapy, using walker, able to ambulate with minimal to SBA only
[2020-04-02 11:59] VITALS: BP 121/71; PULSE 89; PULSE 95; RESP 18; TEMP 36.6; O2SAT 95
--- NOTE | 2020-04-02 12:00 | PC.NURSE ---
Eating lunch, feeds self, denies nausea at this time, states if eats or drinks too much will throw up
[2020-04-02 12:41] LABS: Prostate Specific Antigen 2.2 ng/mL (< OR = 4.0)
--- NOTE | 2020-04-02 14:52 | PC.NURSE ---
No further vomiting, fluids infusing
[2020-04-02 16:00] VITALS: BP 114/68; PULSE 81; PULSE 85; RESP 16; TEMP 36.8; O2SAT 97
[2020-04-02 16:12] LABS: Hemoglobin A1C 6.2 % (<5.7)
--- NOTE | 2020-04-02 16:16 | PM.IMHP ---
H&P: HPI History of Present Illness Chief complaint: AMB Narrative: Robles Pate is a 69 year old male that arrived in the ED yesterday afternoon from [facility] in [place] or he resides. Robles has some mental deficits that affect his ability to care for himself. He has been living at [facility] for some time. He was evaluated and admitted yesterday for syncope and altered mental status. He was brought to the emergency department by EMS after he felt like he had a hot flash. His central office equipment installer said he seemed a bit confused and out of it. He did not lose consciousness and on arrival by EMS he was sitting at the kitchen table and alert. Patient denies headache, chest pain. History is limited due to his mental disability. He has a history of heart failure, asthma, anxiety, asthma, GERD, chronic renal failure, and Roger's disease. An 2017 echo: EF = 20-25%, mod. LV dysfunction. His Head CT showed 1. No acute intracranial findings. 2. Chronic age related findings. At admission it was felt his near-syncope could be attributed to orthostatic hypotension, vasovagal syncope, subarachnoid hemorrhage, pulmonary embolism and/or dehydration. His white count at admission was found to be 8.5, he was afebrile, without a cough without chest pain. He was started on IV fluids at 100 mL an hour which continued overnight and this morning. He was placed on telemetry monitoring. His BNP = 65.1. Stool Occult Blood was found to be Negative. Today when I went to see the patient he was smiling and pleasant and very easy to have a conversation with. He did have a bout of vomiting after breakfast today. He did eat 100% of his breakfast and then proceeded to drink the whole mug of water which is approximately 500 mL of fluid. He then started to cough and vomit. He denied nausea or pain at the time. I witnessed the whole process, he appeared to cough and have phlegm which caused him to then have an upset stomach, and he then proceeded to almost make himself vomit. He seemed to feel fine afterwards. My concern with this episode is that it does appear that he vomits up his medications and therefore may not be getting to absorb his medications if he has this behavior going on at home. I have [facility]phoned the [facility] care facility multiple times today at least 3-5 times today, with no one answering the phone and no one returned my calls - All in an attempt to get a better idea of whether this vomiting behavior is typical or atypical. I then called his brother, Jose De Jesus Pate and spoke with him at length. Jose De Jesus said that on multiple occasions he has picked up Robles from the jail, brought him back to his place for meals and dinner, and at times, although noted not to be all the time, at times Robles will have to vomit after the meal. Jose De Jesus recalled 1 occasion where Robles had him pull the vehicle over on the side of the road, because chidi stated that he needed to cough it up , that he felt sick, that he needed to vomit, and that after doing so that he could breathe and felt better afterwards. There was no loss of consciousness or altered mental status reported or noted during any of these episodes by his brother or by myself. No ectopy noted on his telemetry monitoring. Or his EKG. I then ordered another set of orthostatic blood pressures, another neuro check documented, and a CT scan of the chest abdomen pelvis which showed mild scarring at the lung apices. There is mild atelectasis in the inferior lungs. A calcified right lung nodule is consistent with old granulomatous disease. There are trace pleural effusions. There is left ventricular enlargement of the heart. No pericardial effusion. There are coronary artery calcifications. There is bilateral gynecomastia. There are chronic burst fractures of T8-T11. There is mild chronic anterior wedging of T5-T7 vertebral bodies. The liver, spleen, gallbladder, pancreas, and adrenal glands are normal. There are cysts in the kidneys measuring up to 5
[2020-04-02 16:18] VITALS: BP 110/65; PULSE 85; RESP 18; TEMP 36.8; O2SAT 96
--- NOTE | 2020-04-08 07:28 | PC.NURSE ---
NS that was started at 2132 was stopped at 0732 per Angel Christopher RN.
--- NOTE | 2020-05-22 19:12 | PC.NURSE ---
the bag of iv fluids started on 04/01/209 was completed at 0732 by Lindsey Paz RN
--- NOTE | 2020-05-27 12:07 | PC.NURSE ---
NS THAT WAS STARTED ON 04/02/2020 AT 0757 WAS STOPPED AT 1757 ON THE SAME DATE.
== END 2020-04-02 17:10 ==
LOC: CHSED 19:19 → CHS2ND 19:29
PROVIDERS: Nurse Practitioner; Admitting Provider Emergency Medicine; Emergency Provider Emergency Medicine; PCP Internal Medicine; Visit Provider Emergency Medicine
DX: R41.82 Altered mental status, unspecified (principal); R55 Syncope and collapse; R11.10 Vomiting, unspecified; J45.909 Unspecified asthma, uncomplicated; E27.1 Primary adrenocortical insufficiency; F79 Unspecified intellectual disabilities; F41.9 Anxiety disorder, unspecified; E78.5 Hyperlipidemia, unspecified; K21.9 Gastro-esophageal reflux disease without esophagitis; I50.22 Chronic systolic (congestive) heart failure; N18.3 Chronic kidney disease, stage 3 (moderate); K57.90 Diverticulosis of intestine, part unspecified, without perforation or abscess without bleeding
CPT/HCPCS: 36415; 70450; 71046; 71250; 74176; 80053; 81003; 82272; 83036; 83605; 83690; 83880; 84153; 84484; 85025; 85380; 86140; 87040; 87086; 93005; 96361; 96372; 96374; 97161; 97165; 99285; A9270; G0378; J1650; J2405; J7030; J7512

== ENCOUNTER 2020-04-10 07:27 | Outpatient (CLI) | payer MEDICARE, MEDICAID, SELFPAY ==
--- NOTE | ~2020-04-10 | US_ITS ---
EXAMINATION: US carotid duplex BI DATE: 04/10/2020 08:35 INDICATION: Cerebral and carotid atherosclerosis. Syncope. Vomiting. TECHNIQUE: Grayscale, color Doppler, and pulsed Doppler images of the cervical carotid arteries were obtained. The degree of vessel stenosis is placed in one of the following categories: normal, <50%, 5 0-69%, >=70% but less than near-occlusion, near-occlusion, or total occlusion. Note that percent sten osis relative to normal distal artery lumen diameter is indirectly measured from velocity measurement s as described by Turner, et al. Radiology 2003; 229:340-346. COMPARISON: None. FINDINGS: RIGHT: The right common carotid artery (CCA) peak systolic velocity (PSV) is 111 cm/s. The right internal ca rotid artery (ICA) PSV is 83 cm/s. The right ICA end-diastolic velocity (EDV) is 20 cm/s. The right I CA/CCA PSV ratio is 0.7. Grayscale and color Doppler images yield an estimate of <50% diameter reduct ion from plaque in the ICA. The external carotid artery (ECA) PSV is 64 cm/s. There is antegrade flow in the right vertebral artery. LEFT: The left CCA PSV is 83 cm/s. The left ICA PSV is 64 cm/s. The left ICA EDV is 13 cm/s. The left ICA/C CA PSV ratio is 0.8. Grayscale and color Doppler images yield an estimate of <50% diameter reduction from plaque in the ICA. The ECA PSV is 73 cm/s. There is antegrade flow in the left vertebral artery. IMPRESSION: 1. <50% stenosis in the right internal carotid artery. 2. <50% stenosis in the left internal carotid artery. Reviewed, dictated and finalized at location A.
--- NOTE | ~2020-04-10 | XR_ITS ---
EXAMINATION: XR chest 1V portable INDICATION: Weakness TECHNIQUE: Portable AP chest at 2040 hours COMPARISON: 05/12/2020 FINDINGS: There is unchanged bibasilar atelectasis. No acute airspace opacities are identified. There is no pleural effusion or pneumothorax. The cardiomediastinal silhouette is stable IMPRESSION: 1. No acute cardiopulmonary abnormality. Reviewed, dictated and finalized at location A.
[2020-04-10 07:42] LABS: Basophils Absolute Auto 0.04 K/mm3 (0.00-0.10); Basophils Percent Auto 0.5 % (0.0-1.0); Eosinophils Absolute Auto 0.13 K/mm3 (0.02-0.50); Eosinophils Percent Auto 1.7 % (1.0-6.0); Hematocrit 37.2 % (37.0-46.0); Hemoglobin 12.3 g/dL (12.4-15.3); Immature Granulocyte Absolute 0.06 K/mm3 (0.00-0.00); Immature Granulocyte Percent A 0.8 % (0.0-0.0); Lymphocytes Absolute Auto 1.39 K/mm3 (1.10-4.50); Lymphocytes Percent Auto 18.2 % (18.0-42.0); Mean Corpuscular HGB Conc 33.1 g/dL (32.0-36.0); Mean Corpuscular Hemoglobin 32.1 pg (27.0-31.0); Mean Corpuscular Volume 97.1 fL (78.0-102.0); Mean Platelet Volume 9.9 fl (8.7-11.0); Monocytes Absolute Auto 0.85 K/mm3 (0.10-0.90); Monocytes Percent Auto 11.1 % (2.0-11.0); Neutrophils Absolute Auto 5.2 K/mm3 (1.7-7.2); Neutrophils Percent Auto 67.7 % (50.0-70.0); Platelet Count Result 281 K/mm3 (150-420); Red Blood Count 3.83 M/mm3 (4.70-6.10); White Blood Count 7.6 K/mm3 (4.8-10.8)
[2020-04-10 08:42] LABS: Alanine Aminotransferase 25 U/L (16-63); Albumin Level 3.6 g/dL (3.4-5.0); Alkaline Phosphatase 85 U/L (46-116); Anion Gap 12.5 mmol/L (7-16); Aspartate Amino Transferase 16 U/L (15-37); Bilirubin,Total 0.5 mg/dL (0.00-1.00); Blood Urea Nitrogen 30 mg/dL (7-18); Calcium 9.2 mg/dL (8.5-10.1); Carbon Dioxide 30 mmol/L (21-32); Chloride 104 mmol/L (98-108); Estimated Glomerular Filt Rate 43; Glucose 80 mg/dL (70-99); Osmolality Calculated 299 mOsm/kg (285-295); Phosphorus 3.7 mg/dL (2.6-4.7); Potassium 4.5 mmol/L (3.5-5.1); Sodium 142 mmol/L (136-145); Total Protein 6.9 g/dL (6.4-8.2)
== END 2020-04-10 07:28 | disposition home or self-care (01) ==
PROVIDERS: PCP Internal Medicine; Visit Provider Nurse Practitioner
DX: R55 Syncope and collapse (principal); R11.10 Vomiting, unspecified; N18.3 Chronic kidney disease, stage 3 (moderate)
CPT/HCPCS: 36415; 71045; 80053; 81001; 83605; 83735; 83880; 84100; 84484; 85025; 87040; 93880

== ENCOUNTER 2020-05-12 09:19 | Observation (INO) | payer MEDICARE, MEDICAID, SELFPAY ==
[2020-05-12] VITALS (10 sets, daily range): BP systolic 104–133; BP diastolic 54–91; PULSE 87–123; RESP 16–20; TEMP 36.3–36.9; O2SAT 95–99; BMI 28.0
--- NOTE | ~2020-05-12 | XR_ITS ---
EXAMINATION: XR hip RT 2V w AP pelvis EXAM DATE: 05/12/2020 11:35 INDICATION: Right hip pain with lifting. TECHNIQUE: Right hip frontal, crosstable lateral projections for interpretation. Frontal projection p cristofer. Comparison is made to prior examination from 04/23/2019. FINDINGS: There is chronic severe right hip osteoarthritis likely secondary to femoral head avascular necrosis with superior subluxation of the femoral head with respect to the remodeled acetabulum. Ext ensive bony productive changes as well. Appearance is unchanged compared to prior study. Only mild le ft hip osteoarthritis. There are no acute fractures identified. Calcifications in the pelvis are believed to be phleboliths. IMPRESSION: Severe right hip osteoarthritis likely secondary to chronic avascular necrosis, unchange d. Reviewed, dictated and finalized at location B. IMPRESSION: Severe right hip osteoarthritis likely secondary to chronic avascu lar necrosis, unchanged.
--- NOTE | ~2020-05-12 | XR_ITS ---
EXAMINATION: XR chest 2V EXAM DATE: 05/12/2020 11:35 INDICATION: Tachycardia. TECHNIQUE: Frontal and lateral projections of the chest obtained and reviewed. Comparison is made to prior examination from 04/01/2020. FINDINGS: There is lower thoracic kyphosis from multiple consecutive chronic appearing compression f ractures. Low lung volume with elevated diaphragm. There is Linear right perihilar airspace disease c onsistent with atelectasis, new compared to prior study. Left basilar atelectasis as well given eleva shamar diaphragm. No confluent consolidation, pneumothorax or pleural effusion suspected. The cardiomedi astinal silhouette is prominent but magnified on this AP technique. IMPRESSION: 1. Low lung volume with bibasilar subsegmental atelectasis. Reviewed, dictated and finalized at location B.
--- NOTE | 2020-05-12 09:24 | ECG_ITS ---
Measurements Intervals [place] Rate: 124 P: 57 [place]: 152 QRS: 23 QRSD: 95 T: 67 QT: 309 QTc: 444 Interpretive Statements SINUS TACHYCARDIA EARLY PRECORDIAL R/S TRANSITION BORDERLINE ST-T WAVE ABNORMALITY- INF/LAT LEADS BASELINE ARTIFACT- II, III, AVR, AVF ABNORMAL ECG Electronically Signed On 05-12-2020 9:46:03 CDT by Brian Hwang D.O.
--- NOTE | 2020-05-12 09:27 | ED.AMS ---
HPI - Altered Mental Status General Chief Complaint: Abdominal Pain Stated Complaint: ambulance Time Seen by Provider: 05/12/20 09:19 Source: other (Nurse from [facility]) Mode of arrival: EMS Limitations: other (Poor historian and is difficult to understand.) History of Present Illness HPI narrative: 69-year-old man with developmental disabilities brought to the emergency department today by EMS for lethargy and low blood pressure (85/60) at [facility]. He was was complaining of right side pain and later right leg pain. He denies fall, chest pain. MD complaint: altered mental status Onset (ago): hour(s) (Noted by staff this morning.) Severity: moderate Related Data Home Medications Medication Instructions Recorded Confirmed carvedilol 6.25 mg tablet 6.25 mg PO BID tablet 11/28/19 05/12/20 clotrimazole 1 % topical cream 1 applic TOPICAL Q12H 11/28/19 05/12/20 ferrous sulfate 325 mg (65 mg 325 mg PO DAILY 11/28/19 05/12/20 iron) tablet fluticasone 250 mcg-salmeterol 50 1 inhalation INHALATION BID 11/28/19 05/12/20 mcg/dose blistr powdr for inhalation furosemide 20 mg tablet 20 mg PO DAILY tablet 11/28/19 05/12/20 ipratropium 20 mcg-albuterol 100 1 puff INHALATION QID 11/28/19 05/12/20 mcg/actuation mist for inhalation ketoconazole 2 % topical cream 1 applic TOPICAL WEEKLY gm 11/28/19 05/12/20 lisinopril 5 mg tablet 5 mg PO DAILY 11/28/19 05/12/20 omeprazole 20 mg capsule,delayed 20 mg PO DAILY 11/28/19 05/12/20 release potassium chloride 10 mEq 20 meq PO DAILY 11/28/19 05/12/20 capsule,extended release pravastatin 20 mg tablet 20 mg PO HS 11/28/19 05/12/20 prednisone 10 mg tablet 10 mg PO DAILY 11/28/19 05/12/20 quetiapine 200 mg tablet 200 mg PO HS tablet 11/28/19 05/12/20 spironolactone 25 mg tablet 12.5 mg PO DAILY 11/28/19 05/12/20 famotidine 20 mg tablet 20 mg PO BID 12/02/19 05/12/20 Preparation H 1 applic IA QAM AND QHS PRN 04/01/20 05/12/20 carbamide peroxide [Debrox] 3 drp OTIC (EAR) WEEKLY 04/01/20 05/12/20 ergocalciferol (vitamin D2) 50,000 unit PO WEEKLY 04/01/20 05/12/20 [Vitamin D2] triamcinolone acetonide 1 applic TOPICAL PRN 04/01/20 05/12/20 atorvastatin 20 mg PO DAILY 05/12/20 05/12/20 Allergies Allergy/AdvReac Type Severity Reaction Status Date / Time No Known Allergies Allergy Verified 12/02/19 15:16 Review of Systems Review of Systems: ROS unobtainable: Yes other (Poor historian) Constitutional: Constitutional: Denies chills and Reports fever(s) Cardiovascular: Cardiovascular: Denies chest pain Respiratory: Respiratory: Denies dyspnea Musculoskeletal: Comments: Complains of right anterior and lateral hip pain by pointing, right there. [facility] Social History Social History Smoking status: Never smoker Alcohol intake: never Substance use: never Substance use type: does not use Additional living arrangements comments: [facility] - assisted living. Gender identity (if verbalized by the patient): Male Spiritual care concerns: No Agree to blood products: Yes Exam Const: General: no acute distress and alert HENMT: Mouth: Yes moist mucous membranes Throat: posterior oropharynx normal and uvula midline Eyes: Conjunctivae: conjunctivae normal Pupils: Equal, round and reactive pupils present EOM: EOMs intact bilaterally Chest: Chest palpation & inspection: normal inspection of the chest and no tenderness Resp: Effort & Inspection: normal respiratory effort Auscultation: clear to auscultation bilaterally Cardio: Rate: regular rate Rhythm: regular rhythm Heart sounds: no murmurs GI: Inspection: non-distended GI Palp: Yes Soft to palpation, No Tenderness to palpation present (GI), No Guarding due to palpation present (GI), No Rigid due to palpation, No Hernia present and No Rebound tenderness present : Other: No groin or scrotal masses. Skin: General skin
[2020-05-12] MEDS: SODIUM CHLORIDE 0.9% IV 1,000 ML 999 ML IV CONT (09:39)
[2020-05-12 09:50] LABS: Basophils Absolute Auto 0.02 K/mm3 (0.00-0.10); Basophils Percent Auto 0.2 % (0.0-1.0); Eosinophils Absolute Auto 0.03 K/mm3 (0.02-0.50); Eosinophils Percent Auto 0.2 % (1.0-6.0); Hematocrit 35.7 % (37.0-46.0); Hemoglobin 11.9 g/dL (12.4-15.3); Immature Granulocyte Absolute 0.12 K/mm3 (0.00-0.00); Immature Granulocyte Percent A 0.9 % (0.0-0.0); Lymphocytes Absolute Auto 0.44 K/mm3 (1.10-4.50); Lymphocytes Percent Auto 3.3 % (18.0-42.0); Mean Corpuscular HGB Conc 33.3 g/dL (32.0-36.0); Mean Corpuscular Hemoglobin 31.6 pg (27.0-31.0); Mean Corpuscular Volume 94.7 fL (78.0-102.0); Mean Platelet Volume 10.2 fl (8.7-11.0); Monocytes Absolute Auto 0.56 K/mm3 (0.10-0.90); Monocytes Percent Auto 4.2 % (2.0-11.0); Neutrophils Absolute Auto 12.1 K/mm3 (1.7-7.2); Neutrophils Percent Auto 91.2 % (50.0-70.0); Platelet Count Result 250 K/mm3 (150-420); Red Blood Count 3.77 M/mm3 (4.70-6.10); Red Cell Distribution Width 13.8 % (11.6-14.4); White Blood Count 13.3 K/mm3 (4.8-10.8)
--- NOTE | 2020-05-12 09:51 | PC.NURSE ---
pt had emesis, erp notified.
[2020-05-12 09:56] LABS: Add Urine Microscopic? NO; Appearance Urine Clear (Clear); Bilirubin Urine Negative (Negative); Blood Urine Negative (Negative); Color Urine Yellow (Yellow); Glucose Urine UA Negative (Negative); Ketones Urine Negative (Negative); Leukocyte Esterase Ur Negative LEU/UL (Negative); Nitrate Urine Negative (Negative); Protein Urine Negative (Negative); Urobilinogen Urine 0.2 mg/dL (0.2-1.0)
[2020-05-12] MEDS: ONDANSETRON INJ 4 MG/2 ML VIAL IV PUSH ×3 (09:59→16:30)
[2020-05-12 10:02] LABS: Partial Thromboplastin Time 28.7 SEC (22.3-31.6); Prothrombin Time 10.1 Seconds (9.64-11.0)
[2020-05-12 10:12] LABS: Lactic Acid Reflex 2.3 mmol/L (0.4-2.0)
[2020-05-12 10:17] LABS: BNP 79 pg/mL (0-100)
[2020-05-12 10:21] LABS: Alanine Aminotransferase 35 U/L (16-63); Albumin Level 3.3 g/dL (3.4-5.0); Alkaline Phosphatase 88 U/L (46-116); Anion Gap 14.3 mmol/L (7-16); Aspartate Amino Transferase 22 U/L (15-37); Bilirubin,Total 0.5 mg/dL (0.00-1.00); Blood Urea Nitrogen 21 mg/dL (7-18); CRP 3.6 mg/dL (0.0-0.9); Calcium 8.6 mg/dL (8.5-10.1); Carbon Dioxide 26 mmol/L (21-32); Chloride 101 mmol/L (98-108); Estimated CRCL calculation 35 ml/min; Estimated Glomerular Filt Rate 44; Glucose 147 mg/dL (70-99); Lipase 129 U/L (73-393); Osmolality Calculated 290 mOsm/kg (285-295); Potassium 4.3 mmol/L (3.5-5.1); Sodium 137 mmol/L (136-145); Total Protein 6.8 g/dL (6.4-8.2)
[2020-05-12 10:26] LABS: Troponin I < 0.02 ng/mL (0.00-0.056)
--- NOTE | 2020-05-12 10:35 | PC.NURSE ---
pt resting eyes closed, report to bill siegel
--- NOTE | 2020-05-12 12:20 | ADMGEN ---
This patient, Robles Pate, was admitted to 2nd Floor Room 205-2. Patient/family oriented to hospital policies and general routines including ID bracelet, bed and alarms, visiting hours, pain management, procedures, bathroom and other care routines, personal items, smoking policy, room service/diet, and visiting hours. Valuables list has been completed. Information on how to activate the Rapid Response Team has been discussed. Patient/Family are encouraged to report perceived risks to care and to ask questions if they do not understand what they are told or what they should do.
[2020-05-12] MEDS: IPRATROPIUM 0.5 MG/ALBUTEROL SULFATE 2.5 MG AMPUL.NEB 3 ML INHALATION (12:29)
[2020-05-12 12:47] LABS: Reflex Lactic Acid Yes or No Add Lactic
--- NOTE | 2020-05-12 14:01 | PC.NURSE ---
Pt. had emesis of 50ml containing food particles. Patient reports he has issues at home sometimes if he is very active after he eats. Patient given zofran per order. Sitting up in bed resting. States he is feeling okay right now. PROP WORKER Ena aware of emesis.
--- NOTE | 2020-05-12 14:06 | PM.IMHP ---
H&P: HPI History of Present Illness Chief complaint: tachycardia Narrative: oRbles Pate is a 69 year old male admitted via ER with for near syncope and altered mental status, similar to his past early March 2020 admission. He arrived via ambulance, complaining of abdominal pain. He was admitted due to lethargy and low blood pressure (85/60) at [facility]. He was was complaining of right side pain and later right leg pain; he has a history of Hip osteoarthritis . He denies that he fell or had any chest pain. He has been tachcardic throughout his stay in the emergency department. He was also treated for dehydration with CKD. EKG Interpretation: tachycardia, sinus rhythm, no ectopy, non-specific ST changes, no ST changes and normal QRS. He has a history of heart failure, asthma, anxiety, asthma, GERD, chronic renal failure, and Yoakum's disease. An 2017 echo: EF = 20-25%, mod. LV dysfunction. He has had an episode of vomiting in the ED and also on the 2nd floor in his room. His episode of vomiting on the floor was preceded by him eating lunch of soup and sandwich, a PT session, frequent belching and burping leading up to episode of emesis. When I went to see the patient he was smiling and pleasant and very easy to have a conversation with. He denied having pain anywhere. He does not have a cough, nasal or sinus congestion, nor does he have edema. Robles resides at [facility] in [place]. Robles has some mental deficits that affect his ability to care for himself. He has been living at [facility] for some time. He is a poor health historian, with his developmental disabilities will have run-on conversations, and is difficult to understand at times. His brother, Jose De Jesus Pate checks on his brother. Jose De Jesus has told me in the past that Robles has upset stomach on occasion, and will feel the need to vomit, usually associated with eating too much food and/or nervousness. He needs to follow-up with his primary care physician Dr. Orourke. Review of Systems Review of Systems: All systems reviewed & are unremarkable except as noted in HPI and below Constitutional: Constitutional: Reports as per HPI Eyes: Eyes: Reports as per HPI ENT: Reports as per HPI Cardiovascular: Cardiovascular: Reports as per HPI, Denies pedal edema and Denies leg edema Respiratory: Respiratory: Reports as per HPI Gastrointestinal: Gastrointestinal: Reports as per HPI Genitourinary: Genitourinary: Reports as per HPI Musculoskeletal: Musculoskeletal: Reports as per HPI Integumentary/Breasts: Skin/Breast: Reports as per HPI Neurologic: Reports as per HPI Psychiatric: Psychiatric: Reports as per HPI [facility] Past Medical History Medical History Addisons disease Anxiety Asthma Elevated lipids GERD (gastroesophageal reflux disease) Heart failure (~2015) chronic systolic heart failure. 09/06 echo:EF = 20-25%, mod. LV dysfunction Mental disability (Unknown) Surgical History Surgical History History of cardiac catheterization Social History Social History Smoking status: Never smoker Alcohol intake: never Substance use: never Substance use type: does not use Additional living arrangements comments: [facility] - assisted living. Gender identity (if verbalized by the patient): Male Spiritual care concerns: No Agree to blood products: Yes Meds Home Medications and Allergies Home Medications Medication Instructions Recorded Confirmed Type carvedilol 6.25 mg tablet 6.25 mg PO BID tablet 11/28/19 05/12/20 History clotrimazole 1 % topical cream 1 applic TOPICAL Q12H 11/28/19 05/12/20 History ferrous sulfate 325 mg (65 mg 325 mg PO DAILY 11/28/19 05/12/20 History iron) tablet fluticasone 250 mcg-salmeterol 50 1 inhalation INHALATION BID 11/28/19 0
--- NOTE | 2020-05-12 15:59 | PC.NURSE ---
nichol tire design engineer is in speaking with pt
[2020-05-12 16:14] LABS: Basophils Absolute Auto 0.02 K/mm3 (0.00-0.10); Basophils Percent Auto 0.2 % (0.0-1.0); Hematocrit 34.4 % (37.0-46.0); Hemoglobin 11.2 g/dL (12.4-15.3); Immature Granulocyte Absolute 0.09 K/mm3 (0.00-0.00); Immature Granulocyte Percent A 0.9 % (0.0-0.0); Lymphocytes Percent Auto 4.2 % (18.0-42.0); Mean Corpuscular HGB Conc 32.6 g/dL (32.0-36.0); Mean Corpuscular Hemoglobin 31.3 pg (27.0-31.0); Mean Corpuscular Volume 96.1 fL (78.0-102.0); Mean Platelet Volume 10.5 fl (8.7-11.0); Monocytes Absolute Auto 0.67 K/mm3 (0.10-0.90); Monocytes Percent Auto 7.1 % (2.0-11.0); Neutrophils Absolute Auto 8.3 K/mm3 (1.7-7.2); Neutrophils Percent Auto 87.6 % (50.0-70.0); Platelet Count Result 244 K/mm3 (150-420); Red Blood Count 3.58 M/mm3 (4.70-6.10); Red Cell Distribution Width 13.9 % (11.6-14.4); White Blood Count 9.5 K/mm3 (4.8-10.8)
[2020-05-12] MEDS: FAMOTIDINE 20 MG/ISO 50 ML 20 MG/50 ML BAG 100 MG IVPB (16:30)
[2020-05-12 16:34] LABS: Lactic Acid Reflex 1.8 mmol/L (0.4-2.0)
[2020-05-12 16:35] LABS: Alanine Aminotransferase 33 U/L (16-63); Albumin Level 3.1 g/dL (3.4-5.0); Alkaline Phosphatase 87 U/L (46-116); Anion Gap 10.9 mmol/L (7-16); Aspartate Amino Transferase 19 U/L (15-37); Bilirubin,Total 0.4 mg/dL (0.00-1.00); Blood Urea Nitrogen 20 mg/dL (7-18); Calcium 8.5 mg/dL (8.5-10.1); Carbon Dioxide 29 mmol/L (21-32); Chloride 102 mmol/L (98-108); Estimated CRCL calculation 32 ml/min; Estimated Glomerular Filt Rate 39; Glucose 162 mg/dL (70-99); Osmolality Calculated 290 mOsm/kg (285-295); Potassium 4.9 mmol/L (3.5-5.1); Sodium 137 mmol/L (136-145); Total Protein 6.4 g/dL (6.4-8.2)
[2020-05-12 16:36] LABS: CRP 3.3 mg/dL (0.0-0.9); Troponin I < 0.02 ng/mL (0.00-0.056)
--- NOTE | 2020-05-12 16:40 | PC.NURSE ---
pt having emesis, given iv pepcid, resting in bed with hob up, ordered bland foods for dinner due to upset stomach
[2020-05-12] MEDS: carvediloL 6.25 MG TABLET PO (21:56)
[2020-05-12] MEDS: SUCRALFATE 1 GM TABLET PO (21:58)
[2020-05-12] MEDS: SALMET XINAFT/FLUTIC PROPIN 250 MCG/50 MCG INH CAP 1 PUFF INHALATION (21:58)
[2020-05-13] VITALS (12 sets, daily range): BP systolic 100–130; BP diastolic 60–80; PULSE 67–100; RESP 12–18; TEMP 36.4–36.7; O2SAT 95–99
[2020-05-13] MEDS: IPRATROPIUM 0.5 MG/ALBUTEROL SULFATE 2.5 MG AMPUL.NEB 3 ML INHALATION ×3 (00:05→12:36)
[2020-05-13 00:54] LABS: Troponin I < 0.02 ng/mL (0.00-0.056)
--- NOTE | 2020-05-13 01:45 | PC.NURSE ---
Sleeping, except to void in urinal @ bedside. Telemetry continues. SR. HR 86.
--- NOTE | 2020-05-13 02:25 | PC.NURSE ---
Telemetry continues HR 85.
--- NOTE | 2020-05-13 04:50 | PC.NURSE ---
Telemetry continues. HR 83.
[2020-05-13 05:35] LABS: Basophils Absolute Auto 0.03 K/mm3 (0.00-0.10); Basophils Percent Auto 0.3 % (0.0-1.0); Eosinophils Percent Auto 1.1 % (1.0-6.0); Hematocrit 35.3 % (37.0-46.0); Hemoglobin 11.4 g/dL (12.4-15.3); Immature Granulocyte Absolute 0.07 K/mm3 (0.00-0.00); Immature Granulocyte Percent A 0.8 % (0.0-0.0); Lymphocytes Absolute Auto 0.97 K/mm3 (1.10-4.50); Lymphocytes Percent Auto 10.9 % (18.0-42.0); Mean Corpuscular HGB Conc 32.3 g/dL (32.0-36.0); Mean Corpuscular Hemoglobin 30.8 pg (27.0-31.0); Mean Corpuscular Volume 95.4 fL (78.0-102.0); Mean Platelet Volume 10.2 fl (8.7-11.0); Monocytes Percent Auto 11.3 % (2.0-11.0); Neutrophils Absolute Auto 6.7 K/mm3 (1.7-7.2); Neutrophils Percent Auto 75.6 % (50.0-70.0); Platelet Count Result 262 K/mm3 (150-420); Red Cell Distribution Width 13.8 % (11.6-14.4); White Blood Count 8.9 K/mm3 (4.8-10.8)
[2020-05-13] MEDS: PANTOPRAZOLE 40 MG TABLET PO (05:56)
[2020-05-13] MEDS: SUCRALFATE 1 GM TABLET PO ×2 (05:56→12:33)
[2020-05-13 06:03] LABS: Alanine Aminotransferase 30 U/L (16-63); Albumin Level 3.1 g/dL (3.4-5.0); Anion Gap 11.8 mmol/L (7-16); Aspartate Amino Transferase 16 U/L (15-37); Bilirubin,Total 0.7 mg/dL (0.00-1.00); Blood Urea Nitrogen 17 mg/dL (7-18); Calcium 8.7 mg/dL (8.5-10.1); Carbon Dioxide 29 mmol/L (21-32); Chloride 102 mmol/L (98-108); Estimated CRCL calculation 35 ml/min; Estimated Glomerular Filt Rate 44; Glucose 83 mg/dL (70-99); Osmolality Calculated 286 mOsm/kg (285-295); Potassium 4.8 mmol/L (3.5-5.1); Sodium 138 mmol/L (136-145); Total Protein 6.4 g/dL (6.4-8.2); Troponin I < 0.02 ng/mL (0.00-0.056)
[2020-05-13 06:13] LABS: Alkaline Phosphatase 87 U/L (46-116)
--- NOTE | 2020-05-13 08:06 | PM.DS ---
DS: Admitting Diagnosis Admitting Diagnosis Admitting Diagnosis: Unilateral primary osteoarthritis, right hip <Ena Davis NP - Last Filed: 05/13/20 13:27> DS: Discharge Diagnosis Discharge Diagnosis (1) Hip osteoarthritis: Qualifiers: Laterality: right Osteoarthritis type: unspecified Qualified Code(s): M16.11 - Unilateral primary osteoarthritis, right hip <Ena Davis NP - Last Filed: 05/13/20 13:27> Code(s): M16.9 - Osteoarthritis of hip, unspecified <Ena Davsi NP - Last Filed: 05/13/20 13:27> Status: Acute <Ena Davis NP - Last Filed: 05/13/20 13:27> Assessment and Plan: use tylenol daily to control pain PT/OT to evaluate and treat - ok'd discharge back to alf xrays to confirm no acute fractures. treat pain with ice PRN, turn as needed, assist patient with ADLs continue oral vit. D daily see avascular necrosis plan below <Ena Davis NP - Last Filed: 05/13/20 13:27> (2) Chronic vomiting: Code(s): R11.10 - Vomiting, unspecified <Ena Davis NP - Last Filed: 05/13/20 13:27> Status: Acute <Ena Davis NP - Last Filed: 05/13/20 13:27> Assessment and Plan: continue oral pepcid, protonix, carafate, zofran - switch to IV form if needed while hospitalized reduce anxiety spoke with Kitty at his Longterm and Robles doesn't have any GI troubles or Nausea or Vomitting for them - so they attribute it to Nerves or Anxiety when he goes to Dr. zambrano or the hospital. White-coat syndrome vomiting. F/U with GI specialist if the patient starts having trouble at the alf started mucinex, continue Flonase - minimize nasopharyngeal secreation with mucinex and flonase <Ena Davis NP - Last Filed: 05/13/20 13:27> (3) AMS (altered mental status): Qualifiers: Altered mental status type: somnolence Qualified Code(s): R40.0 - Somnolence <Ena Davis NP - Last Filed: 05/13/20 13:27> Code(s): R41.82 - Altered mental status, unspecified <Ena Davis NP - Last Filed: 05/13/20 13:27> Status: Acute <Ena Davis NP - Last Filed: 05/13/20 13:27> Assessment and Plan: Neuro checks Q shift. lactic level checked tachycardic at admission EKG compelted at admission On continuous cardiac telemetry monitoring labs ordered to check electrolyte levels continuous IV fluids to rehydrate nursing staff to encourage oral hydration and push fluids strict I and Os recheck elevated labs as needed <Ena Davis NP - Last Filed: 05/13/20 13:27> (4) Tachycardia: Code(s): R00.0 - Tachycardia, unspecified <Ena Davis NP - Last Filed: 05/13/20 13:27> Status: Acute <Ena Davis NP - Last Filed: 05/13/20 13:27> Assessment and Plan: tachycardic at admission - RESOLVED. EKG compelted at admission On continuous cardiac telemetry monitoring showed only NSR with HR 80s labs ordered to check electrolyte levels - WNL continuous IV fluids to rehydrate - keeping hydrated with orals nursing staff to encourage oral hydration and push fluids strict I and Os patient is no longer tachycardic, not having s/s of dizziness or light-headedness, denies chest pain, denies SOB. reducing his inhaled albuterol and his oral steroid use <Ena Davis NP - Last Filed: 05/13/20 13:27> (5) Avascular necrosis of right femoral head: Code(s): M87.051 - Idiopathic aseptic necrosis of right femur <Ena Davis NP - Last Filed: 05/13/20 13:27> Status: Acute <Ena Davis NP - Last Filed: 05/13/20 13:27> Assessment and Plan: Patient having intermittent right hip pain. His HIP xray yesterday showed: chronic unchanged severe right hip osteoarthritis likely secondary to femoral head avascular necrosis with superior subluxation of the femoral head with respect to the remodeled acetabulum. Appearance i
[2020-05-13] MEDS: ONDANSETRON INJ 4 MG/2 ML VIAL IV PUSH (08:32)
--- NOTE | 2020-05-13 08:39 | PC.NURSE ---
zofran given, ate all of breakfast, states ate too much then vomited about 400ml liquid mixed with food
[2020-05-13] MEDS: FAMOTIDINE 20 MG/ISO 50 ML 20 MG/50 ML BAG 100 MG IVPB (08:58)
[2020-05-13] MEDS: SALMET XINAFT/FLUTIC PROPIN 250 MCG/50 MCG INH CAP 1 PUFF INHALATION (08:59)
[2020-05-13] MEDS: lisinopriL 5 MG TABLET PO (09:00)
[2020-05-13] MEDS: ATORVASTATIN 10 MG TABLET 20 MG PO (09:00)
[2020-05-13] MEDS: FERROUS SULFATE 324 MG TABLET PO (09:00)
[2020-05-13] MEDS: carvediloL 6.25 MG TABLET PO (09:01)
--- NOTE | 2020-05-13 09:20 | PC.NURSE ---
Ambulated to bathroom, gait steady with walker and gait belt, denies nausea or vomiting at this time, , heart rate 80's
[2020-05-13] MEDS: MICONAZOLE NITRATE 2% CREAM 30 GM TUBE 1 APPLIC TOPICAL (09:37)
--- NOTE | 2020-05-13 10:30 | PC.NURSE ---
Taking oral fluids well, heart rate remains in the 80's, in the 90's with activity
--- NOTE | 2020-05-13 11:30 | PC.NURSE ---
AM rounds completed with hospitalist and physician, denies complaints, heart rate 80's, taking oral fluids without n/v at this time
--- NOTE | 2020-05-13 13:03 | PC.NURSE ---
Ate well, encouraged to slow eating and limit fluids while eating, no vomiting noted
--- NOTE | 2020-05-13 13:34 | PC.NURSE ---
Dressing to skin tear to left arm removed, area cleansed and new dressing applied, tolerated well
--- NOTE | 2020-05-13 13:47 | PC.NURSE ---
Assisted to dress, tolerated well,
--- NOTE | 2020-05-13 14:50 | PC.NURSE ---
Discharged via wheel chair to care home care, personal items returned
== END 2020-05-13 14:50 ==
LOC: CHSED 09:24 → CHS2ND 11:54
PROVIDERS: Nurse Practitioner; Admitting Provider Emergency Medicine; Emergency Provider Emergency Medicine; PCP Internal Medicine; Visit Provider Emergency Medicine
DX: M16.11 Unilateral primary osteoarthritis, right hip (principal); I95.9 Hypotension, unspecified; R53.83 Other fatigue; R11.10 Vomiting, unspecified; R00.0 Tachycardia, unspecified; R41.82 Altered mental status, unspecified; I50.22 Chronic systolic (congestive) heart failure; N18.9 Chronic kidney disease, unspecified; E27.1 Primary adrenocortical insufficiency; E78.5 Hyperlipidemia, unspecified; K21.9 Gastro-esophageal reflux disease without esophagitis; J45.909 Unspecified asthma, uncomplicated; F89 Unspecified disorder of psychological development
CPT/HCPCS: 36415; 71046; 73502; 80053; 81003; 83605; 83690; 83735; 83880; 84484; 85025; 85610; 85730; 86140; 87040; 87086; 93005; 94640; 96361; 96365; 96366; 96374; 96375; 96376; 97161; 97165; 99284; 99285; A9270; G0378; J2405; J7030

== ENCOUNTER 2020-05-17 19:40 | Observation (INO) | payer MEDICARE, MEDICAID, SELFPAY ==
--- NOTE | ~2020-05-17 | XR_ITS ---
EXAMINATION: XR chest 1V portable INDICATION: Weakness TECHNIQUE: Portable AP chest at 2040 hours COMPARISON: 05/12/2020 FINDINGS: There is unchanged bibasilar atelectasis. No acute airspace opacities are identified. There is no pleural effusion or pneumothorax. The cardiomediastinal silhouette is stable IMPRESSION: 1. No acute cardiopulmonary abnormality. Reviewed, dictated and finalized at location A.
[2020-05-17] MEDS: SODIUM CHLORIDE 0.9% IV 1,000 ML 75 ML (20:01)
[2020-05-17 20:05] VITALS: BP 101/59; PULSE 122; RESP 20; TEMP 36.6; O2SAT 95
--- NOTE | 2020-05-17 20:25 | ECG_ITS ---
Measurements Intervals [place] Rate: 124 P: 23 MS: 152 QRS: -2 QRSD: 90 T: 68 QT: 303 QTc: 435 Interpretive Statements SINUS TACHYCARDIA EARLY PRECORDIAL R/S TRANSITION LEFT VENTRICULAR HYPERTROPHY WITH ST-T CHANGE NONSPECIFIC ST & T-WAVE ABNORMALITY- INF/LAT LEADS BASELINE ARTIFACT- I, II, III, AVR, AVL, AVF, V6 ABNORMAL ECG Electronically Signed On 05-18-2020 7:08:51 CDT by Brian Hwang D.O.
[2020-05-17 20:35] LABS: Basophils Absolute Auto 0.04 K/mm3 (0.00-0.10); Basophils Percent Auto 0.5 % (0.0-1.0); Eosinophils Absolute Auto 0.23 K/mm3 (0.02-0.50); Eosinophils Percent Auto 2.7 % (1.0-6.0); Hematocrit 34.1 % (37.0-46.0); Hemoglobin 11.2 g/dL (12.4-15.3); Immature Granulocyte Absolute 0.05 K/mm3 (0.00-0.00); Immature Granulocyte Percent A 0.6 % (0.0-0.0); Lymphocytes Percent Auto 11.9 % (18.0-42.0); Mean Corpuscular HGB Conc 32.8 g/dL (32.0-36.0); Mean Corpuscular Hemoglobin 30.7 pg (27.0-31.0); Mean Corpuscular Volume 93.4 fL (78.0-102.0); Mean Platelet Volume 10.3 fl (8.7-11.0); Monocytes Absolute Auto 0.99 K/mm3 (0.10-0.90); Monocytes Percent Auto 11.8 % (2.0-11.0); Neutrophils Absolute Auto 6.1 K/mm3 (1.7-7.2); Neutrophils Percent Auto 72.5 % (50.0-70.0); Platelet Count Result 240 K/mm3 (150-420); Red Blood Count 3.65 M/mm3 (4.70-6.10); Red Cell Distribution Width 13.7 % (11.6-14.4); White Blood Count 8.4 K/mm3 (4.8-10.8)
[2020-05-17 20:57] LABS: BNP 23 pg/mL (0-100)
[2020-05-17 20:58] LABS: Alanine Aminotransferase 27 U/L (16-63); Alkaline Phosphatase 101 U/L (46-116); Anion Gap 15.4 mmol/L (7-16); Aspartate Amino Transferase 20 U/L (15-37); Bilirubin,Total 0.6 mg/dL (0.00-1.00); Blood Urea Nitrogen 21 mg/dL (7-18); Calcium 8.4 mg/dL (8.5-10.1); Carbon Dioxide 22 mmol/L (21-32); Chloride 98 mmol/L (98-108); Estimated Glomerular Filt Rate 40; Glucose 115 mg/dL (70-99); Osmolality Calculated 276 mOsm/kg (285-295); Potassium 4.4 mmol/L (3.5-5.1); Sodium 131 mmol/L (136-145); Total Protein 6.6 g/dL (6.4-8.2)
[2020-05-17 20:59] LABS: Troponin I < 0.02 ng/mL (0.00-0.056)
[2020-05-17] MEDS: KETOROLAC 30 MG/ML VIAL (*BKC) IV PUSH (21:01)
--- NOTE | 2020-05-17 21:08 | ED.WEAKNESS ---
HPI - Weakness General Chief complaint: Weakness Stated complaint: ambulance Source: patient Mode of arrival: EMS Limitations: no limitations History of Present Illness HPI Narrative: this is a 69-year-old gentleman with a history of CHF with ejection fraction 20 to 25% chronic kidney disease history of asthma and and mental disability, the patient presents from a [facility] with some staff mentioning that he was hypotensive, here in the emergency department his initial blood pressure is 101/59 with a heart rate of 120 to the patient denies any shortness of breath there is no peripheral edema there is no shortness of breath or chest pain no nausea vomiting abdominal pain no dysuria. Patient was recently discharged in early April of this year. MD Complaint: generalized weakness Onset (ago): hour(s) Duration: constant Location: generalized Severity: similar to previous episodes ( Right knee pain) Severity scale (1-10): 5 Quality: aching Associated symptoms: denies other symptoms Related Data Home Medications Medication Instructions Recorded Confirmed carvedilol 6.25 mg tablet 6.25 mg PO BID tablet 11/28/19 05/12/20 clotrimazole 1 % topical cream 1 applic TOPICAL Q12H 11/28/19 05/12/20 ferrous sulfate 325 mg (65 mg 325 mg PO DAILY 11/28/19 05/12/20 iron) tablet fluticasone 250 mcg-salmeterol 50 1 inhalation INHALATION BID 11/28/19 05/12/20 mcg/dose blistr powdr for inhalation furosemide 20 mg tablet 20 mg PO DAILY tablet 11/28/19 05/12/20 ipratropium 20 mcg-albuterol 100 1 puff INHALATION QID 11/28/19 05/12/20 mcg/actuation mist for inhalation ketoconazole 2 % topical cream 1 applic TOPICAL WEEKLY gm 11/28/19 05/12/20 lisinopril 5 mg tablet 5 mg PO DAILY 11/28/19 05/12/20 omeprazole 20 mg capsule,delayed 20 mg PO DAILY 11/28/19 05/12/20 release potassium chloride 10 mEq 20 meq PO DAILY 11/28/19 05/12/20 capsule,extended release pravastatin 20 mg tablet 20 mg PO HS 11/28/19 05/12/20 quetiapine 200 mg tablet 200 mg PO HS tablet 11/28/19 05/12/20 spironolactone 25 mg tablet 12.5 mg PO DAILY 11/28/19 05/12/20 famotidine 20 mg tablet 20 mg PO BID 12/02/19 05/12/20 Preparation H 1 applic MO QAM AND QHS PRN 04/01/20 05/12/20 carbamide peroxide [Debrox] 3 drp OTIC (EAR) WEEKLY 04/01/20 05/12/20 ergocalciferol (vitamin D2) 50,000 unit PO WEEKLY 04/01/20 05/12/20 [Vitamin D2] triamcinolone acetonide 1 applic TOPICAL PRN 04/01/20 05/12/20 atorvastatin 20 mg PO DAILY 05/12/20 05/12/20 acetaminophen [Mapap 650 mg PO ONCE 05/17/20 05/17/20 (acetaminophen)] alum-mag hydroxide-simeth [Mylanta 30 ml PO TID PRN 05/17/20 05/17/20 Maximum Strength] bismuth subsalicylate [Bismatrol] 1,050 mg PO QID 05/17/20 05/17/20 magnesium hydroxide [Milk of 30 ml PO DAILY PRN 05/17/20 05/17/20 Magnesia] vitamin U46-stdnq acid 1,000 joycelyn SUBLINGUAL DAILY 05/17/20 05/17/20 Allergies Allergy/AdvReac Type Severity Reaction Status Date / Time No Known Allergies Allergy Verified 12/02/19 15:16 Review of Systems Review of Systems: All systems reviewed & are unremarkable except as noted in HPI and below PMFSH Past Medical History Medical History Addisons disease Anxiety Asthma Elevated lipids GERD (gastroesophageal reflux disease) Heart failure (~2015) chronic systolic heart failure. 09/06 echo:EF = 20-25%, mod. LV dysfunction Mental disability (Unknown) Surgical History Surgical History History of cardiac catheterization Social History Social History Smoking status: Never smoker Alcohol intake: never Substance use: never Substance use type: does not use Additional living arrangements comments: [facility] - assisted living. Gender identity (if verbalized by the patient): Male Spiritual care concerns: No
[2020-05-17 21:19] VITALS: BP 111/61; PULSE 122; O2SAT 97
[2020-05-17 21:26] LABS: Appearance Urine Clear (Clear); Bilirubin Urine Negative (Negative); Color Urine Yellow (Yellow); Glucose Urine UA Negative (Negative); Ketones Urine Negative (Negative); Leukocyte Esterase Ur Negative (Negative); Nitrate Urine Negative (Negative); Protein Urine Negative (Negative); Specific Grav Ur 1.015 (1.010-1.020); Urobilinogen Urine 0.2 mg/dL (0.2-1.0); pH Urine 5.5 (5.0-8.0)
[2020-05-17 21:28] VITALS: BP 114/65; PULSE 120; O2SAT 97
[2020-05-17 21:32] LABS: Add Urine Microscopic? YES; Bacteria Urine None seen /hpf; Blood Urine Trace-lysed (Negative); Mucus Urine None seen /lpf; RBC Urine 0-2 /hpf (0-2); Squamous Epithelial Cell Urine None seen /hpf (Few); WBC Urine None seen /hpf (0-3)
[2020-05-17 22:00] VITALS: BP 81/44; PULSE 99; RESP 16; TEMP 36.6; O2SAT 98
[2020-05-18] VITALS (8 sets, daily range): BP systolic 112; BP diastolic 55–65; PULSE 76–116; RESP 12–20; TEMP 36.4–37.1; O2SAT 98
[2020-05-18] MEDS: SODIUM CHLORIDE 0.9% IV 1,000 ML 100 ML IV CONT (04:08)
[2020-05-18] MEDS: SUCRALFATE SUSP 100 MG/ML 10 ML UDC 1000 MG PO ×3 (05:53→17:00)
[2020-05-18 07:33] LABS: Basophils Absolute Auto 0.04 K/mm3 (0.00-0.10); Basophils Percent Auto 0.8 % (0.0-1.0); Eosinophils Absolute Auto 0.21 K/mm3 (0.02-0.50); Hemoglobin 9.8 g/dL (12.4-15.3); Immature Granulocyte Absolute 0.04 K/mm3 (0.00-0.00); Immature Granulocyte Percent A 0.8 % (0.0-0.0); Lymphocytes Absolute Auto 0.53 K/mm3 (1.10-4.50); Lymphocytes Percent Auto 10.1 % (18.0-42.0); Mean Corpuscular HGB Conc 32.7 g/dL (32.0-36.0); Mean Corpuscular Hemoglobin 30.5 pg (27.0-31.0); Mean Corpuscular Volume 93.5 fL (78.0-102.0); Mean Platelet Volume 10.2 fl (8.7-11.0); Monocytes Absolute Auto 0.78 K/mm3 (0.10-0.90); Monocytes Percent Auto 14.9 % (2.0-11.0); Neutrophils Absolute Auto 3.6 K/mm3 (1.7-7.2); Neutrophils Percent Auto 69.4 % (50.0-70.0); Platelet Count Result 223 K/mm3 (150-420); Red Blood Count 3.21 M/mm3 (4.70-6.10); Red Cell Distribution Width 13.5 % (11.6-14.4); White Blood Count 5.2 K/mm3 (4.8-10.8)
[2020-05-18 07:50] LABS: Alanine Aminotransferase 21 U/L (16-63); Albumin Level 2.5 g/dL (3.4-5.0); Alkaline Phosphatase 85 U/L (46-116); Anion Gap 12.5 mmol/L (7-16); Aspartate Amino Transferase 17 U/L (15-37); Bilirubin,Total 0.6 mg/dL (0.00-1.00); Blood Urea Nitrogen 18 mg/dL (7-18); Calcium 8.3 mg/dL (8.5-10.1); Carbon Dioxide 23 mmol/L (21-32); Chloride 102 mmol/L (98-108); Estimated CRCL calculation 37 ml/min; Estimated Glomerular Filt Rate 45; Glucose 80 mg/dL (70-99); Osmolality Calculated 276 mOsm/kg (285-295); Potassium 4.5 mmol/L (3.5-5.1); Sodium 133 mmol/L (136-145); Total Protein 5.5 g/dL (6.4-8.2)
[2020-05-18 08:05] LABS: BNP 36.1 pg/mL (0-100)
[2020-05-18] MEDS: FERROUS SULFATE 324 MG TABLET PO (09:03)
[2020-05-18] MEDS: FAMOTIDINE 20 MG TABLET PO ×2 (09:03→17:00)
[2020-05-18] MEDS: ATORVASTATIN 10 MG TABLET 20 MG PO (09:03)
[2020-05-18] MEDS: SALMET XINAFT/FLUTIC PROPIN 250 MCG/50 MCG INH CAP 1 PUFF INHALATION ×2 (09:03→17:00)
--- NOTE | 2020-05-18 12:46 | PM.SD ---
Same Day Admit/Disch: HPI History of Present Illness Chief complaint: Dehydration/Acute on Chronic Renal Insufficiency Narrative: Robles Pate is a 69 year old male That presented to the ED with weakness and hypotensive. admitting diagnosis dehydration and hypertension He has a past medical history of Fitzgerald's disease, anxiety, asthma, elevated lipids, GERD, heart failure with the EF of 20-25% and mental disability while patient was in the ED EKG was completed which indicated sinus tach with a heart rate of 124 chest x-ray negative lactic acid within normal limits troponin negative patient's initial blood pressure in the ED was 101/59 with a heart rate of 120 patient was given IV fluid. Patient current vital signs are 112/5, 95, 12, 97.6,98% on room air. Patient able to tolerate all meals , slept well and ambulate at baseline. Patient denies SOB, CP, palpitation, extremity numbness, lightheadness, dizziness, constipation, diarrhea, chills or fever. Patient agree that they are ready for discharge and discharge plan. Patient is a resident of [place] he will return back to [place]. I contacted patient's house cleaner supervisor Dr. Hwang. we both agreed that patient diuretics should be decreased and blood pressure medicate cut in half. Patient will discharge home with the Lasix 20 mg daily, hold for 2 days lisinopril 2.5 mg p.o. b.i.d. and carvedilol 3.125 mg b.i.d. and discontinue spironolactone. [facility] Past Medical History Medical History Addisons disease Anxiety Asthma Elevated lipids GERD (gastroesophageal reflux disease) Heart failure (~2015) chronic systolic heart failure. 09/06 echo:EF = 20-25%, mod. LV dysfunction Mental disability (Unknown) Surgical History Surgical History History of cardiac catheterization Social History Social History Smoking status: Unknown if ever smoked Alcohol intake: unknown Substance use: unknown Substance use type: does not use Additional living arrangements comments: [facility] - assisted living. Gender identity (if verbalized by the patient): Male Spiritual care concerns: No Agree to blood products: Yes Same Day Admit/Disch: Med Pre-admit Medications Home Medications Medication Instructions Recorded Confirmed Type clotrimazole 1 % topical cream 1 applic TOPICAL Q12H 11/28/19 05/17/20 History ferrous sulfate 325 mg (65 mg 325 mg PO DAILY 11/28/19 05/17/20 History iron) tablet fluticasone 250 mcg-salmeterol 50 1 inhalation INHALATION BID 11/28/19 05/17/20 History mcg/dose blistr powdr for inhalation furosemide 20 mg tablet 20 mg PO DAILY tablet 11/28/19 05/17/20 History ipratropium 20 mcg-albuterol 100 1 puff INHALATION QID 11/28/19 05/17/20 History mcg/actuation mist for inhalation ketoconazole 2 % topical cream 1 applic TOPICAL WEEKLY gm 11/28/19 05/17/20 History omeprazole 20 mg capsule,delayed 20 mg PO DAILY 11/28/19 05/17/20 History release potassium chloride 10 mEq 20 meq PO DAILY 11/28/19 05/17/20 History capsule,extended release pravastatin 20 mg tablet 20 mg PO HS 11/28/19 05/17/20 History quetiapine 200 mg tablet 200 mg PO HS tablet 11/28/19 05/17/20 History famotidine 20 mg tablet 20 mg PO BID 12/02/19 05/17/20 History Preparation H 1 applic AL QAM AND QHS PRN 04/01/20 05/17/20 History carbamide peroxide [Debrox] 3 drp OTIC (EAR) WEEKLY 04/01/20 05/17/20 History ergocalciferol (vitamin D2) 50,000 unit PO WEEKLY 04/01/20 05/17/20 History [Vitamin D2] triamcinolone acetonide 1 applic TOPICAL PRN 04/01/20 05/17/20 History sucralfate 1,000 mg PO ACHS 30 Days #1200 ml 04/02/20 05/17/20 Rx atorvastatin 20 mg PO DAILY 05/12/20 05/17/20 History guaifenesin [Mucus Relief ER] 1,200 mg PO Q12HR 30 Days #120 05/13/20 05/17/20 Rx tablet ipratropium-albuterol 3 ml INHA
[2020-05-18] MEDS: ACETAMINOPHEN 325 MG TABLET 650 MG PO (17:05)
== END 2020-05-18 17:15 | disposition home or self-care (01) ==
LOC: CHSED 21:15 → CHS2ND 21:18
PROVIDERS: Admitting Provider Emergency Medicine; Emergency Provider Emergency Medicine; PCP Internal Medicine; Visit Provider Emergency Medicine
DX: E86.0 Dehydration (principal); I95.9 Hypotension, unspecified; N28.9 Disorder of kidney and ureter, unspecified; I50.22 Chronic systolic (congestive) heart failure; N18.9 Chronic kidney disease, unspecified; E27.1 Primary adrenocortical insufficiency; E78.5 Hyperlipidemia, unspecified; K21.9 Gastro-esophageal reflux disease without esophagitis; J45.909 Unspecified asthma, uncomplicated; F41.9 Anxiety disorder, unspecified; F79 Unspecified intellectual disabilities
CPT/HCPCS: 36415; 71045; 80053; 81001; 83605; 83735; 83880; 84484; 85025; 87040; 93005; 96361; 96374; 99284; 99285; A9270; G0378; J1885; J7030

== ENCOUNTER 2020-05-22 19:30 | Emergency (ER) | payer MEDICARE, MEDICAID, SELFPAY ==
--- NOTE | ~2020-05-22 | XR_ITS ---
XR chest 1V portable DATE: 05/22/2020 20:13 INDICATION: Hypotension TECHNIQUE: Portable AP chest on 05/22/2020 at 2001 hours COMPARISON: 05/09/2020 portable AP chest at 2040 hours FINDINGS: There is chronic moderate elevation left leaf of the diaphragm. There is atelectasis at the lung bases, left greater than right. Heart size is likely within normal range. No pulmonary vascular congestion is evident. No pneumothora x. Osteoarthritic change at the right glenohumeral joint. Osteopenia. DEXA scoliosis and degenerative ch daisy of the thoracic spine. IMPRESSION: Chronic elevation left diaphragm and bibasilar infiltrate or atelectasis, left greater th an right Reviewed, dictated and finalized at location A. IMPRESSION: Chronic elevation left diaphragm and bibasilar infiltrate or atelec tasis, left greater than right
[2020-05-22 19:30] VITALS: BP 117/67; PULSE 111; RESP 16; TEMP 36.7; O2SAT 97
--- NOTE | 2020-05-22 19:38 | ECG_ITS ---
Measurements Intervals [place] Rate: 114 P: 26 [place]: 163 QRS: -12 QRSD: 103 T: 47 QT: 314 QTc: 434 Interpretive Statements SINUS TACHYCARDIA NONSPECIFIC ST & T-WAVE ABNORMALITY- HIGH LATERAL LEADS BASELINE ARTIFACT- II, III, AVR, AVL,A VF, V4 ABNORMAL ECG Electronically Signed On 05-23-2020 7:18:25 CDT by Brian Hwang D.O.
--- NOTE | 2020-05-22 19:44 | ED.GENADULT ---
HPI - General Adult General Chief complaint: Weakness Stated complaint: AMB Source: patient History of Present Illness HPI narrative: per EMS report patient arrives to us with low blood pressure. When asked how he feels the patient does flex that knee does not seem to be in any discomfort. Per nursing staff patient is at his baseline mental status. We did call the senior care and apparently patient had been complaining of being hot earlier in the day so they put him on the blood pressure machine which checks his blood pressure about every 15 minutes. They did check his temperature which was 98 with time. Apparently over the course of several hours and they noticed that his blood pressure at home was going down. At 1 point patient complained of some nausea and did have an emesis when they checked his blood pressure at that time it was 60 systolic. However when EMS arrived the patient's blood pressure has rebounded into the 80s or 90s. Patient did not complain of any pain chest pain lightheadedness or dizziness Relieving factors: none Exacerbating factors: none Associated symptoms: denies other symptoms Related Data Home Medications Medication Instructions Recorded Confirmed clotrimazole 1 % topical cream 1 applic TOPICAL Q12H 11/28/19 05/22/20 ferrous sulfate 325 mg (65 mg 325 mg PO DAILY 11/28/19 05/22/20 iron) tablet furosemide 20 mg tablet 20 mg PO DAILY tablet 11/28/19 05/22/20 ipratropium 20 mcg-albuterol 100 1 puff INHALATION QID 11/28/19 05/22/20 mcg/actuation mist for inhalation ketoconazole 2 % topical cream 1 applic TOPICAL WEEKLY gm 11/28/19 05/22/20 omeprazole 20 mg capsule,delayed 20 mg PO DAILY 11/28/19 05/22/20 release potassium chloride 10 mEq 20 meq PO DAILY 11/28/19 05/22/20 capsule,extended release pravastatin 20 mg tablet 20 mg PO HS 11/28/19 05/22/20 quetiapine 200 mg tablet 200 mg PO HS tablet 11/28/19 05/22/20 famotidine 20 mg tablet 20 mg PO BID 12/02/19 05/22/20 Preparation H 1 applic [place] QAM AND QHS PRN 04/01/20 05/22/20 carbamide peroxide [Debrox] 3 drp OTIC (EAR) WEEKLY 04/01/20 05/22/20 ergocalciferol (vitamin D2) 50,000 unit PO WEEKLY 04/01/20 05/22/20 [Vitamin D2] triamcinolone acetonide 1 applic TOPICAL PRN 04/01/20 05/22/20 atorvastatin 20 mg PO DAILY 05/12/20 05/22/20 Bismatrol 1,050 mg PO QID 05/17/20 05/22/20 acetaminophen [Mapap 650 mg PO ONCE 05/17/20 05/22/20 (acetaminophen)] alum-mag hydroxide-simeth [Mylanta 30 ml PO TID PRN 05/17/20 05/22/20 Maximum Strength] magnesium hydroxide [Milk of 30 ml PO DAILY PRN 05/17/20 05/22/20 Magnesia] vitamin E48-lleas acid 1,000 jyocelyn SUBLINGUAL DAILY 05/17/20 05/22/20 ipratropium-albuterol [Combivent 1 spray INHALATION PRN PRN 05/22/20 05/22/20 Respimat] Allergies Allergy/AdvReac Type Severity Reaction Status Date / Time No Known Allergies Allergy Verified 12/02/19 15:16 Review of Systems Review of Systems: Narrative: Mr. Pate seems to be an unreliable historian. At this time he is not complaining of pain fevers or anything other than right knee and thigh pain. All systems reviewed & are unremarkable except as noted in HPI and below Musculoskeletal: Comments: r knee and thigh pain PMFSH Past Medical History Medical History (Updated 05/22/20 @ 20:49 by Nicole Nguyen MD) Addisons disease Anxiety Asthma Elevated lipids GERD (gastroesophageal reflux disease) Heart failure (~2015) chronic systolic heart failure. 09/06 echo:EF = 20-25%, mod. LV dysfunction Hypotension Mental disability (Unknown) Surgical History Surgical History History of cardiac catheterization Social History Social History Smoking status: Unknown if ever smoked Alcohol intake: unknown Substance use: unknown Substance use type: does not use Additional living arrangements comments: [facility]
--- NOTE | 2020-05-22 19:45 | PC.NURSE ---
PT FOUND TO HAVE BEEN TAKEN OFF TWO BLOOD PRESSURE MEDICINES WHILE IN THE HOSPITAL AND THEN PLACED BACK ON ONE. ERP AWARE.
[2020-05-22 19:56] LABS: Basophils Absolute Auto 0.06 K/mm3 (0.00-0.10); Basophils Percent Auto 0.6 % (0.0-1.0); Eosinophils Absolute Auto 0.36 K/mm3 (0.02-0.50); Eosinophils Percent Auto 3.8 % (1.0-6.0); Hematocrit 31.9 % (37.0-46.0); Hemoglobin 10.7 g/dL (12.4-15.3); Immature Granulocyte Absolute 0.05 K/mm3 (0.00-0.00); Immature Granulocyte Percent A 0.5 % (0.0-0.0); Lymphocytes Percent Auto 9.6 % (18.0-42.0); Mean Corpuscular HGB Conc 33.5 g/dL (32.0-36.0); Mean Corpuscular Hemoglobin 31.4 pg (27.0-31.0); Mean Corpuscular Volume 93.5 fL (78.0-102.0); Mean Platelet Volume 10.2 fl (8.7-11.0); Monocytes Absolute Auto 1.12 K/mm3 (0.10-0.90); Monocytes Percent Auto 11.9 % (2.0-11.0); Neutrophils Absolute Auto 6.9 K/mm3 (1.7-7.2); Neutrophils Percent Auto 73.6 % (50.0-70.0); Platelet Count Result 279 K/mm3 (150-420); Red Blood Count 3.41 M/mm3 (4.70-6.10); Red Cell Distribution Width 13.7 % (11.6-14.4); White Blood Count 9.4 K/mm3 (4.8-10.8)
[2020-05-22] MEDS: KETOROLAC 15 MG/ML VIAL (*BKC) IV PUSH (20:04)
[2020-05-22 20:13] LABS: Alanine Aminotransferase 29 U/L (16-63); Albumin Level 2.9 g/dL (3.4-5.0); Alkaline Phosphatase 98 U/L (46-116); Anion Gap 14.6 mmol/L (7-16); Aspartate Amino Transferase 25 U/L (15-37); Bilirubin,Total 0.6 mg/dL (0.00-1.00); Blood Urea Nitrogen 17 mg/dL (7-18); Calcium 8.8 mg/dL (8.5-10.1); Carbon Dioxide 24 mmol/L (21-32); Chloride 102 mmol/L (98-108); Estimated Glomerular Filt Rate 38; Glucose 104 mg/dL (70-99); Osmolality Calculated 283 mOsm/kg (285-295); Potassium 4.6 mmol/L (3.5-5.1); Sodium 136 mmol/L (136-145); Total Protein 6.5 g/dL (6.4-8.2); Troponin I < 0.02 ng/mL (0.00-0.056)
[2020-05-22 20:24] VITALS: BP 119/72; PULSE 114; RESP 20; O2SAT 97
[2020-05-22] MEDS: SODIUM CHLORIDE 0.9% IV 1,000 ML 999 ML IV CONT (21:25)
--- NOTE | 2020-05-22 21:25 | PC.NURSE ---
1ST LITER NS INFUSED AT THIS TIME
[2020-05-22 21:44] LABS: Add Urine Microscopic? YES; Appearance Urine Clear (Clear); Bilirubin Urine Negative (Negative); Blood Urine Negative (Negative); Color Urine Yellow (Yellow); Glucose Urine UA Negative (Negative); Ketones Urine Negative (Negative); Leukocyte Esterase Ur Trace LEU/UL (Negative); Nitrate Urine Negative (Negative); Protein Urine Negative (Negative); Urobilinogen Urine 0.2 mg/dL (0.2-1.0)
[2020-05-22 21:48] LABS: Bacteria Urine 1+ /hpf; RBC Urine None seen /hpf (0-2); Squamous Epithelial Cell Urine Rare /hpf (Few); WBC Urine 0-3 /hpf (0-3)
[2020-05-22 22:05] VITALS: BP 120/71
--- NOTE | 2020-05-22 22:05 | PC.NURSE ---
PT AWAITING DISCHARGE - DALILA RED CALLED FOR RIDE - PT IS SLEEPING AT THIS TIME, DENIES C/O
[2020-05-22 22:26] VITALS: PULSE 111; RESP 17; O2SAT 98
--- NOTE | 2020-05-22 22:41 | PC.NURSE ---
REPORT GIVEN TO DALILA RED, RN ACUTE DIALYSIS, [facility] STAFF
== END 2020-05-22 22:29 ==
PROVIDERS: Emergency Provider Emergency Medicine; PCP Internal Medicine
DX: I95.9 Hypotension, unspecified (principal); K21.9 Gastro-esophageal reflux disease without esophagitis; E78.5 Hyperlipidemia, unspecified; I50.9 Heart failure, unspecified
CPT/HCPCS: 36415; 51701; 71045; 80053; 81001; 84484; 85025; 93005; 96361; 96374; 99283; 99284; J1885; J7030

== ENCOUNTER 2020-06-01 19:48 | Inpatient (IN) | payer MEDICARE, MEDICAID, SELFPAY ==
--- NOTE | ~2020-06-01 | XR_ITS ---
XR knee RT 2V 06/03/2020 09:30 Indication: Right knee pain Procedure: 2 views right knee Comparison: Comparison to multiple prior studies sequentially, with oldest reviewed study dated 12/05. Findings: No acute fracture, subluxation or dislocation. Osteopenia. No joint effusion. No radiopaque foreign bodies. Impression: 1: No acute bone or joint abnormality. Reviewed, dictated and finalized at location B. Impression: 1: No acute bone or joint abnormality.
--- NOTE | ~2020-06-01 | CT_ITS ---
EXAMINATION: CT cervical spine wo con DATE: 06/01/2020 20:19 INDICATION: Near syncope. TECHNIQUE: Computed tomography (CT) of the cervical spine was performed without intravenous contrast. Automated exposure control and iterative reconstruction technique were employed. The dose-length pro duct was 681.00 mGy-cm. COMPARISON: Chest CT 04/02/2020 FINDINGS: There is mild scarring at the lung apices. There is a chronic compression fracture of T1 wi th 1/5 loss of height. There is severely decreased disc height from C3-C4 through C5-C6. There is a b enign bone island in right C2 lateral mass. The following disc levels are specifically discussed: C2-C3: There is no uncovertebral joint osteoarthritis. There is moderate right and severe left facet joint osteoarthritis. There is mild bilateral neural foraminal stenosis. There is no central canal st enosis. C3-C4: There is severe bilateral uncovertebral joint osteoarthritis. There is mild right and severe l eft facet joint osteoarthritis. There is moderate bilateral neural foraminal stenosis. There is mild central canal stenosis. C4-C5: There is severe right and mild left uncovertebral joint osteoarthritis. There is severe bilate ral facet joint osteoarthritis. There is severe right and mild left neural foraminal stenosis. There is mild central canal stenosis. C5-C6: There is severe bilateral uncovertebral joint osteoarthritis. There is mild bilateral facet katty int osteoarthritis. There is moderate right and mild left neural foraminal stenosis. There is mild ce ntral canal stenosis. C6-C7: There is no uncovertebral joint osteoarthritis. There is mild right and severe left facet join t osteoarthritis. There is mild left neural foraminal stenosis. There is no central canal stenosis. C7-T1: There is no uncovertebral joint osteoarthritis. There is mild right and severe left facet join t osteoarthritis. There is mild left neural foraminal stenosis. There is no central canal stenosis. IMPRESSION: 1. No acute fracture. 2. Severe cervical spondylosis. Reviewed, dictated and finalized at location A.
--- NOTE | ~2020-06-01 | CT_ITS ---
EXAMINATION: CT brain wo con DATE: 06/01/2020 20:19 INDICATION: Near syncope. TECHNIQUE: Computed tomography (CT) of the head was performed without intravenous contrast. The mA wa s adjusted according to patient size. Iterative reconstruction technique was employed. The dose-lengt h product was 681.00 mGy-cm. COMPARISON: Head CT 04/01/2020 FINDINGS: There is mild motion artifact. There are scattered areas of low attenuation in the cerebral white matter. There is no intracranial hemorrhage, acute infarction, or abnormal intracranial mass l esion. The ventricles are normal in size. There is mucosal thickening in the paranasal sinuses. The o rbits are normal. The mastoid air cells are normal. IMPRESSION: 1. Stable mild nonspecific cerebral white matter disease, which likely represents chronic small vesse l ischemic disease. Reviewed, dictated and finalized at location A. IMPRESSION: 1. Stable mild nonspecific cerebral white matter disease, which likely represen ts chronic small vessel ischemic disease.
[2020-06-01 19:48] VITALS: BP 134/67; PULSE 105; RESP 18; TEMP 36.2; O2SAT 98
--- NOTE | 2020-06-01 19:54 | ED.SYNCOPE ---
HPI - Syncope General Chief Complaint: Altered Mental Status Stated Complaint: AMB Source: EMS and RN notes reviewed Mode of arrival: EMS Limitations: altered mental status History of Present Illness HPI narrative: patient was at [facility]. Apparently had been falling a couple of times. They tried to get him back to bed using his walker but he continued to remain unsteady. Ambulance was called. He is put into a C-collar due to his falls. He responds to verbal stimuli, seems to be able to follow commands to move his arms and legs but will not open his eyes. Patient has a history of Vieques's disease but is not on any medication this. No other history of any abnormal alcohol abuse or drug use. MD complaint: felt faint and collapsed Onset (ago): hour(s) (1) -: second(s) Prodromal symptoms: none Witnessed: Yes - by Bystander Context: at rest Injuries sustained associated with event: none Current symptoms: lightheaded and weakness Treatments prior to arrival: none Related Data Home Medications Medication Instructions Recorded Confirmed ipratropium 20 mcg-albuterol 100 1 puff INHALATION QID 11/28/19 06/01/20 mcg/actuation mist for inhalation ketoconazole 2 % topical cream 1 applic TOPICAL WEEKLY gm 11/28/19 06/01/20 potassium chloride 10 mEq 20 meq PO DAILY 11/28/19 06/01/20 capsule,extended release pravastatin 20 mg tablet 20 mg PO HS 11/28/19 06/01/20 quetiapine 200 mg tablet 200 mg PO HS tablet 11/28/19 06/01/20 Preparation H 1 applic [place] QAM AND QHS PRN 04/01/20 06/01/20 carbamide peroxide [Debrox] 3 drp OTIC (EAR) WEEKLY 04/01/20 06/01/20 ergocalciferol (vitamin D2) 50,000 unit PO WEEKLY 04/01/20 06/01/20 [Vitamin D2] triamcinolone acetonide 1 applic TOPICAL PRN 04/01/20 06/01/20 atorvastatin 20 mg PO DAILY 05/12/20 06/01/20 Bismatrol 1,050 mg PO QID 05/17/20 06/01/20 acetaminophen [Mapap 650 mg PO ONCE 05/17/20 06/01/20 (acetaminophen)] alum-mag hydroxide-simeth [Mylanta 30 ml PO TID PRN 05/17/20 06/01/20 Maximum Strength] magnesium hydroxide [Milk of 30 ml PO DAILY PRN 05/17/20 06/01/20 Magnesia] vitamin R15-aicdn acid 1,000 joycelyn SUBLINGUAL DAILY 05/17/20 06/01/20 ipratropium-albuterol [Combivent 1 spray INHALATION PRN PRN 05/22/20 06/01/20 Respimat] dextromethorphan-guaifenesin 1 tablet PO Q12H 06/01/20 06/01/20 [Mucinex DM] famotidine 20 mg PO BID 06/01/20 06/01/20 fluticasone propion-salmeterol 1 inh INHALATION BID 06/01/20 06/01/20 [Advair Diskus] furosemide 20 mg PO DAILY 06/01/20 06/01/20 ipratropium-albuterol [Combivent 1 puff INHALATION QID 06/01/20 06/01/20 Respimat] omeprazole 20 mg PO DAILY 06/01/20 06/01/20 spironolactone 25 mg PO DAILY 06/01/20 06/01/20 Allergies Allergy/AdvReac Type Severity Reaction Status Date / Time No Known Allergies Allergy Verified 06/01/20 20:01 Review of Systems Review of Systems: All systems reviewed & are unremarkable except as noted in HPI and below PMFSH Past Medical History Medical History Addisons disease Anxiety Asthma Elevated lipids GERD (gastroesophageal reflux disease) Heart failure (~2015) chronic systolic heart failure. 09/06 echo:EF = 20-25%, mod. LV dysfunction Hypotension Mental disability (Unknown) Surgical History Surgical History History of cardiac catheterization Social History Social History Smoking status: Unknown if ever smoked Alcohol intake: unknown Substance use: unknown Substance use type: does not use Additional living arrangements comments: [facility] - assisted living. Gender identity (if verbalized by the patient): Male Spiritual care concerns: No Agree to blood products: Yes Exam Const: Nutritional Appearance: well nourished Limitations: altered mental status HENMT: Head: normal to inspection
--- NOTE | 2020-06-01 19:55 | ECG_ITS ---
Measurements Intervals [place] Rate: 104 P: 47 NE: 172 QRS: 10 QRSD: 101 T: 55 QT: 324 QTc: 427 Interpretive Statements SINUS TACHYCARDIA EARLY PRECORDIAL R/S TRANSITION BASELINE WANDER- V6 ABNORMAL Electronically Signed On 06-01-2020 20:21:56 CDT by Brian Hwang D.O.
[2020-06-01 20:25] LABS: Hematocrit 32.4 % (37.0-46.0); Hemoglobin 11.1 g/dL (12.4-15.3); Mean Corpuscular HGB Conc 34.3 g/dL (32.0-36.0); Mean Corpuscular Hemoglobin 30.6 pg (27.0-31.0); Mean Corpuscular Volume 89.3 fL (78.0-102.0); Mean Platelet Volume 9.7 fl (8.7-11.0); Platelet Count Result 445 K/mm3 (150-420); Red Blood Count 3.63 M/mm3 (4.70-6.10); Red Cell Distribution Width 13.3 % (11.6-14.4); White Blood Count 8.8 K/mm3 (4.8-10.8)
[2020-06-01 20:40] LABS: Alanine Aminotransferase 19 U/L (16-63); Albumin Level 2.9 g/dL (3.4-5.0); Alkaline Phosphatase 119 U/L (46-116); Anion Gap 12.6 mmol/L (7-16); Aspartate Amino Transferase 26 U/L (15-37); Bilirubin,Total 0.8 mg/dL (0.00-1.00); Blood Urea Nitrogen 21 mg/dL (7-18); Carbon Dioxide 25 mmol/L (21-32); Chloride 89 mmol/L (98-108); Estimated Glomerular Filt Rate 26; Glucose 111 mg/dL (70-99); Magnesium 1.7 mg/dL (1.8-2.4); Osmolality Calculated 256 mOsm/kg (285-295); Potassium 5.6 mmol/L (3.5-5.1); Sodium 121 mmol/L (136-145); Total Protein 6.8 g/dL (6.4-8.2)
[2020-06-01 20:44] LABS: Band Neutrophils Percent 0 % (0-6); Basophils Percent Manual 0 % (0-1); Eosinophils Absolute Manual 1.32 K/mm3 (0.02-0.5); Eosinophils Percent Manual 15 % (1-6); Lymphocytes Absolute Manual 0.79 K/mm3 (1.1-4.5); Lymphocytes Percent Manual 9 % (18-44); Monocytes Absolute Manual 0.96 K/mm3 (0.1-0.90); Monocytes Percent Manual 11 % (3-9); Neutrophils Absolute Manual 5.72 K/mm3 (1.3-6.7); Neutrophils Percent Manual 65 % (46-73); Total Cells Counted 100
[2020-06-01 20:45] LABS: Lactic Acid Reflex 1.8 mmol/L (0.4-2.0); Platelet Estimate Adequate (Adequate)
[2020-06-01] MEDS: SODIUM CHLORIDE 0.9% IV 1,000 ML 999 ML IV CONT (20:56)
[2020-06-01] MEDS: methylPREDNISolone SOD SUCC 125 MG VIAL IV PUSH (20:56)
[2020-06-01 21:35] LABS: BNP 153 pg/mL (0-100)
[2020-06-01 21:38] LABS: Add Urine Microscopic? YES; Appearance Urine Clear (Clear); Bilirubin Urine 1+ (Negative); Blood Urine Negative (Negative); Color Urine Yellow (Yellow); Glucose Urine UA Negative (Negative); Ketones Urine Trace (Negative); Leukocyte Esterase Ur Trace LEU/UL (Negative); Nitrate Urine Negative (Negative); Protein Urine Negative (Negative); Specific Grav Ur 1.025 (1.010-1.020); Urobilinogen Urine 0.2 mg/dL (0.2-1.0)
[2020-06-01 21:43] LABS: Bacteria Urine Trace /hpf; RBC Urine 0-2 /hpf (0-2); Squamous Epithelial Cell Urine Rare /hpf (Few); WBC Urine 0-3 /hpf (0-3)
--- NOTE | 2020-06-01 21:45 | PC.NURSE ---
2053 attempted bed assignment, no answer. 2013 rn spoke with charge nurse, Liss, at this time to request room for OBS. Room 207 provided. liss states the room is not cleaned yet. 2146 RN called report to Karen, room is still not clean. RN requests call back when room is complete. .
[2020-06-01 21:58] VITALS: BP 112/66; PULSE 106; RESP 15; O2SAT 98
[2020-06-01 22:16] VITALS: BP 129/72; PULSE 68; RESP 18; TEMP 36.6; O2SAT 95
--- NOTE | 2020-06-01 22:26 | PC.NURSE ---
Patient arrived on unit. Oriented x0. Call light in reach. Bed alarm on. Placed by nurse's station
[2020-06-01] MEDS: DEXTROSE 5%/0.9% SOD CHL 1,000 ML 150 ML IV CONT (22:38)
--- NOTE | 2020-06-01 23:29 | PC.NURSE ---
[facility] called to ask for clarification on orders; Dr. Cox notified and orders were clarified.
[2020-06-02] VITALS: BP 108/73; PULSE 102; RESP 20; TEMP 36.7; O2SAT 92
[2020-06-02 04:00] VITALS: BP 112/60; PULSE 115; RESP 18; TEMP 36.4; O2SAT 93
[2020-06-02 04:26] VITALS: BMI 26.9
[2020-06-02] MEDS: DEXTROSE 5%/0.9% SOD CHL 1,000 ML 150 ML IV CONT ×3 (04:32→20:11)
[2020-06-02 05:53] LABS: Basophils Absolute Auto 0.02 K/mm3 (0.00-0.10); Basophils Percent Auto 0.4 % (0.0-1.0); Eosinophils Absolute Auto 0.01 K/mm3 (0.02-0.50); Eosinophils Percent Auto 0.2 % (1.0-6.0); Hematocrit 29.7 % (37.0-46.0); Hemoglobin 10.1 g/dL (12.4-15.3); Immature Granulocyte Absolute 0.05 K/mm3 (0.00-0.00); Lymphocytes Absolute Auto 0.27 K/mm3 (1.10-4.50); Lymphocytes Percent Auto 5.4 % (18.0-42.0); Mean Corpuscular Hemoglobin 30.5 pg (27.0-31.0); Mean Corpuscular Volume 89.7 fL (78.0-102.0); Mean Platelet Volume 10.4 fl (8.7-11.0); Monocytes Absolute Auto 0.06 K/mm3 (0.10-0.90); Monocytes Percent Auto 1.2 % (2.0-11.0); Neutrophils Absolute Auto 4.6 K/mm3 (1.7-7.2); Neutrophils Percent Auto 91.8 % (50.0-70.0); Platelet Count Result 406 K/mm3 (150-420); Red Blood Count 3.31 M/mm3 (4.70-6.10); Red Cell Distribution Width 13.2 % (11.6-14.4)
[2020-06-02 06:09] LABS: Anion Gap 16.1 mmol/L (7-16); Blood Urea Nitrogen 18 mg/dL (7-18); Calcium 8.4 mg/dL (8.5-10.1); Carbon Dioxide 20 mmol/L (21-32); Chloride 95 mmol/L (98-108); Estimated CRCL calculation 29 ml/min; Estimated Glomerular Filt Rate 34; Glucose 209 mg/dL (70-99); Osmolality Calculated 269 mOsm/kg (285-295); Potassium 5.1 mmol/L (3.5-5.1); Sodium 126 mmol/L (136-145)
[2020-06-02] MEDS: SUCRALFATE SUSP 100 MG/ML 10 ML UDC 1000 MG PO ×4 (06:18→20:10)
[2020-06-02 07:45] VITALS: BP 112/69; PULSE 109; RESP 18; TEMP 36.6; O2SAT 96
[2020-06-02 07:57] LABS: Magnesium 1.8 mg/dL (1.8-2.4)
[2020-06-02] MEDS: HYDROCORTISONE SODIUM SUCCINATE 100 MG/2 ML VIAL 25 MG IV PUSH ×3 (10:12→21:32)
[2020-06-02] MEDS: guaiFENesin 12 HR 600 MG TABCR 1200 MG PO ×2 (10:13→20:11)
[2020-06-02] MEDS: FAMOTIDINE 20 MG TABLET PO ×2 (10:16→18:12)
[2020-06-02] MEDS: SPIRONOLACTONE 25 MG TABLET PO (10:16)
[2020-06-02] MEDS: SALMET XINAFT/FLUTIC PROPIN 250 MCG/50 MCG INH CAP 1 PUFF INHALATION ×2 (10:16→18:12)
[2020-06-02] MEDS: ATORVASTATIN 10 MG TABLET 20 MG PO (10:16)
[2020-06-02] MEDS: PANTOPRAZOLE 40 MG TABLET PO (10:16)
[2020-06-02] MEDS: FUROSEMIDE 20 MG TABLET PO (10:17)
[2020-06-02 13:00] VITALS: BP 104/53; PULSE 99; RESP 18; TEMP 36.8; O2SAT 95
--- NOTE | 2020-06-02 13:19 | PM.IMHP ---
H&P: HPI History of Present Illness Chief complaint: bolivar's disease Narrative: Robles Pate is a 69 year old male THAT PRESENTED TO THE ED WITH WEAKNESS AND UNSTEADY GAIT. PATIENT HAS A PAST MEDICAL HISTORY OF BOLIVAR'S DISEASE, ANXIETY, ASTHMA, ELEVATED LIPIDS, GERD, HEART FAILURE, HYPOTENSION AND MENTAL DISEASE ABILITY. PATIENT IS NORMALLY TALKATIVE TODAY HE IS LETHARGIC. ACCORDING TO NOTES THE STAFF MEMBERS WERE HE RESIDES ATTEMPTED TO GET HIM BACK IN BED WITH HIS WALKER BUT WAS UNABLE TO DUE TO HIS UNSTABLE GAIT. THEY ALSO POINTED OUT THE PATIENT HAD FELL A COUPLE TIMES. EMS WAS CALLED AND PATIENT WAS TRANSPORTED HERE. PATIENT'S VITAL SIGNS 97.6, 115, 18, 93, 112/60, PATIENT'S SODIUM LEVEL ON ADMISSION WAS 121 HIS POTASSIUM WAS 5.6 AND HIS CREATININE WAS 2.[address]IENT'S CT OF THE HEAD WAS NEGATIVE HIS CERVICAL SPINE X-RAY WAS ALSO NEGATIVE FOR FRACTURE , EKG WAS SINUS TACH 104. PATIENT IS RECEIVES D5 1/2 NORMAL SALINE AT 150 ML/HOUR HE WAS BOLUSED 1 UNIT WHILE IN THE ED AND GIVEN SOLU-MEDROL 125 MG IVP. I WILL START PATIENT ON HYDROCORTISONE 25 MG Q.6 HOURS FOR HIS BOLIVAR'S DISEASE. I DID TALK TO DR. FRANCOIS HIS PRIMARY CARE PHYSICIAN AND HE NOTED THAT PATIENT SHOULD BE ON PREDNISONE 10 MG DAILY. ACCORDING TO OUR MEDICAL RECORDS PATIENT HAS NOT RECEIVED THE PREDNISONE SINCE HIS DISCHARGE ON 05/13/2020. ACCORDING TO THE DISCHARGE INSTRUCTION THE PREDNISONE WAS DC AND SHOULD HAVE RESTARTED ON 01/15/2020 WHICH I AM ASSUMING MEANS 05/15/2020. PATIENT WAS NOT RESTARTED ON PREDNISONE. PATIENT WILL DISCHARGE WITH PREDNISONE THIS VISIT. HE IS BEING ADMITTED FOR ADRENAL CRISIS. ACCORDING TO DR. FRANCOIS HE INHERITED THE PATIENT 2 YEARS AGO, PATIENT HAD PREVIOUSLY BEEN DIAGNOSED WITH BOLIVAR'S DISEASE FROM PREVIOUS PROVIDER. Review of Systems Review of Systems: ROS unobtainable: Yes unobtainable due to medical condition PMFSH Past Medical History Medical History Addisons disease Anxiety Asthma Elevated lipids GERD (gastroesophageal reflux disease) Heart failure (~2015) chronic systolic heart failure. 09/06 echo:EF = 20-25%, mod. LV dysfunction Hypotension Mental disability (Unknown) Surgical History Surgical History History of cardiac catheterization Social History Social History Smoking status: Unknown if ever smoked Alcohol intake: unknown Substance use: unknown Substance use type: does not use Additional living arrangements comments: [facility] - assisted living. Gender identity (if verbalized by the patient): Male Spiritual care concerns: No Agree to blood products: Yes Meds Home Medications and Allergies Home Medications Medication Instructions Recorded Confirmed Type ipratropium 20 mcg-albuterol 100 1 puff INHALATION QID 11/28/19 06/01/20 History mcg/actuation mist for inhalation ketoconazole 2 % topical cream 1 applic TOPICAL WEEKLY gm 11/28/19 06/01/20 History potassium chloride 10 mEq 20 meq PO DAILY 11/28/19 06/01/20 History capsule,extended release pravastatin 20 mg tablet 20 mg PO HS 11/28/19 06/01/20 History quetiapine 200 mg tablet 200 mg PO HS tablet 11/28/19 06/01/20 History Preparation H 1 applic VT QAM AND QHS PRN 04/01/20 06/01/20 History carbamide peroxide [Debrox] 3 drp OTIC (EAR) WEEKLY 04/01/20 06/01/20 History ergocalciferol (vitamin D2) 50,000 unit PO WEEKLY 04/01/20 06/01/20 History [Vitamin D2] triamcinolone acetonide 1 applic TOPICAL PRN 04/01/20 06/01/20 History sucralfate 1,000 mg PO ACHS 30 Days #1200 ml 04/02/20 06/01/20 Rx atorvastatin 20 mg PO DAILY 05/12/20 06/01/20 History guaifenesin [Mucus Relief ER] 1,200 mg PO Q12HR 30 Days #120 05/13/20 06/01/20 Rx tablet ipratropium-albuterol 3 ml INHALATION TID PRN #90 ml 05/13/20 06/01/20 Rx Bismatrol 1,050 mg PO QID 05/17/20
--- NOTE | 2020-06-02 15:10 | PC.NURSE ---
Patient sleeping quietly in bed. IV fluids infusing per order. Denies any needs. Call verde at side.
[2020-06-02 16:45] VITALS: BP 110/74; PULSE 102; PULSE 105; RESP 18; TEMP 36.8; O2SAT 100
--- NOTE | 2020-06-02 17:09 | PM.EVENT ---
Event Note Event Note Event Note: I have examined the patient and reviewed the chart. I discussed the patient's care with Maryann Romero APN and agree with her assessment and plan.
[2020-06-02 20:00] VITALS: BP 106/58; PULSE 106; RESP 20; TEMP 36.7; O2SAT 93
[2020-06-02] MEDS: QUEtiapine FUMARATE 100 MG TABLET 200 MG PO (20:10)
[2020-06-03] VITALS (7 sets, daily range): BP systolic 98–106; BP diastolic 57–64; PULSE 88–104; RESP 16–20; TEMP 36.3–36.6; O2SAT 94–97
[2020-06-03] MEDS: DEXTROSE 5%/0.9% SOD CHL 1,000 ML 150 ML IV CONT (03:44)
[2020-06-03] MEDS: HYDROCORTISONE SODIUM SUCCINATE 100 MG/2 ML VIAL 25 MG IV PUSH (03:50)
[2020-06-03 05:27] LABS: Hematocrit 25.8 % (37.0-46.0); Hemoglobin 8.6 g/dL (12.4-15.3); Mean Corpuscular HGB Conc 33.3 g/dL (32.0-36.0); Mean Corpuscular Hemoglobin 30.6 pg (27.0-31.0); Mean Corpuscular Volume 91.8 fL (78.0-102.0); Mean Platelet Volume 9.6 fl (8.7-11.0); Platelet Count Result 393 K/mm3 (150-420); Red Blood Count 2.81 M/mm3 (4.70-6.10); Red Cell Distribution Width 13.3 % (11.6-14.4)
[2020-06-03 05:45] LABS: Alanine Aminotransferase 18 U/L (16-63); Albumin Level 2.4 g/dL (3.4-5.0); Alkaline Phosphatase 87 U/L (46-116); Anion Gap 10.2 mmol/L (7-16); Aspartate Amino Transferase 27 U/L (15-37); Bilirubin,Total 0.4 mg/dL (0.00-1.00); Blood Urea Nitrogen 14 mg/dL (7-18); Calcium 7.8 mg/dL (8.5-10.1); Carbon Dioxide 24 mmol/L (21-32); Chloride 105 mmol/L (98-108); Estimated CRCL calculation 37 ml/min; Estimated Glomerular Filt Rate 45; Glucose 159 mg/dL (70-99); Magnesium 1.9 mg/dL (1.8-2.4); Osmolality Calculated 283 mOsm/kg (285-295); Potassium 4.2 mmol/L (3.5-5.1); Sodium 135 mmol/L (136-145); Total Protein 5.6 g/dL (6.4-8.2)
[2020-06-03] MEDS: SUCRALFATE SUSP 100 MG/ML 10 ML UDC 1000 MG PO ×4 (05:55→21:28)
[2020-06-03] MEDS: SALMET XINAFT/FLUTIC PROPIN 250 MCG/50 MCG INH CAP 1 PUFF INHALATION ×2 (10:07→17:08)
[2020-06-03] MEDS: SPIRONOLACTONE 25 MG TABLET PO (10:08)
[2020-06-03] MEDS: ATORVASTATIN 10 MG TABLET 20 MG PO (10:08)
[2020-06-03] MEDS: PANTOPRAZOLE 40 MG TABLET PO (10:08)
[2020-06-03] MEDS: FUROSEMIDE 20 MG TABLET PO (10:08)
[2020-06-03] MEDS: guaiFENesin 12 HR 600 MG TABCR 1200 MG PO ×2 (10:08→21:29)
[2020-06-03] MEDS: FAMOTIDINE 20 MG TABLET PO ×2 (10:08→17:08)
--- NOTE | 2020-06-03 11:20 | PC.NURSE ---
Patient sleeping quietly in bed with hob elevated. No signs of distress noted. Call light and belongings at side.
--- NOTE | 2020-06-03 11:36 | P.PN_ITS ---
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 I WOULD THEN SWITCH HIM BACK OVER TO HIS PREDNISONE 10 MG DAILY. * PATIENT CURRENTLY IN BOLIVAR'S CRISIS EVIDENCE BY HIS CONFUSION, WEAKNESS, FATIGUE, LETHARGIC, AND ELECTROLYTE IMBALANCE * CONTINUE NEURO CHECKS <Holley Romero DIANNAJessie - Last Filed: 06/03/20 11:40> (2) Hypotension: Code(s): I95.9 - Hypotension, unspecified <Holley Romero LENO-Jessie - Last Filed: 06/03/20 11:40> Status: Acute <Holley Romero JAXSON - Last Filed: 06/03/20 11:40> Assessment and Plan: * POSSIBLY SECONDARY TO BOLIVAR'S CRISIS * WILL CONTINUE TO HYDRATE PATIENT * VITAL SIGNS ORDERED <Holley Romero DIANNAJessie - Last Filed: 06/03/20 11:40> (3) Tachycardia: Code(s): R00.0 - Tachycardia, unspecified <Holley Romero LENO-C - Last Filed: 06/03/20 11:40> Status: Acute <Holley Romero DIANNAJessie - Last Filed: 06/03/20 11:40> Assessment and Plan: * POSSIBLY SECONDARY TO ADRENAL CRISIS * WILL CONTINUE TO MONITOR VITAL SIGNS ORDERED * STARTED TELEMETRY <Holley Romero MASTER CONTROL SUPERVISOR-C - Last Filed: 06/03/20 11:40> (4) AMS (altered mental status): Qualifiers: Altered mental status type: somnolence Qualified Code(s): R40.0 - Somnolence <Holley Romero MASTER CONTROL SUPERVISOR-C - Last Filed: 06/03/20 11:40> Code(s): R41.82 - Altered mental status, unspecified <Holley Romero MASTER CONTROL SUPERVISORJavedJessie - Last Filed: 06/03/20 11:40> Status: Acute <Holley Romero MASTER CONTROL SUPERVISOR-C - Last Filed: 06/03/20 11:40> Assessment and Plan: * 2ND TO ADRENAL CRISIS * REFER TO BOLIVAR'S DISEASE <Holley RomeroJAXSON - Last Filed: 06/03/20 11:40> (5) Chronic kidney failure: Qualifiers: Chronic kidney disease stage: stage 3 (moderate) Qualified Code(s): N18.3 - Chronic kidney disease, stage 3 (moderate) <Holley RomeroJAXSON - Last Filed: 06/03/20 11:40> Code(s): N18.9 - Chronic kidney disease, unspecified <Holley Romero DIANNAJessie - Last Filed: 06/03/20 11:40> Status: Acute <Holley Romero MASTER CONTROL SUPERVISORJavedJessie - Last Filed: 06/03/20 11:40> Assessment and Plan: * RENAL FUNCTION IMPROVING WITH IV FLUIDS ON ADMISSION 2.51 CURRENTLY 1.53 WILL REPEAT IN THE A.M. * BASELINE APPEARS TO BE AROUND 1.50 ? EKG INDICATE SINUS TACH WITH A HEART RATE OF 104 ? POTASSIUM LEVEL ON ADMISSION ELEVATED TO 5.6 CURRENTLY 5.1 ? TROP NEGATIVE ? UA INDICATE TRACE OF KETONES ,BILI, RBC'S, WBC'S AND TRACE OF BACTERIA ? CXR INDICATE UNREMARKABLE ? BUN/CR 14/1.53 ? AVOID NEPROTOXIC AGENTS <Holley DoranDanette NickJAXSON - Last Filed: 06/03/20 11:40> (6) Adrenal crisis: Code(s): E27.2 - Addisonian crisis <Holley DoranJAXSON Cristina - Last Filed: 06/03/20 11:40> Status: Acute <Holley DoranJAXSON Cristina - Last Filed: 06/03/20 11:40> Assessment and Plan: *
--- NOTE | 2020-06-03 11:36 | WPDPN ---
Progress Note: A&P Assessment and Plan (1) Bolivar's disease: Code(s): E27.1 - Primary adrenocortical insufficiency <Holley Romero MARKETING SENIOR RECRUITER-C - Last Filed: 06/03/20 11:40> Status: Acute <Holley Romero MARKETING SENIOR RECRUITERJavedJessie - Last Filed: 06/03/20 11:40> Assessment and Plan: PATIENT'S ACTH ON 01/08/20 WAS 22 REPEAT ACTH PENDING ACCORDING TO PATIENT PCP PATIENT SHOULD HAVE BEEN ON PREDNISONE 10 MG DAILY IT APPEARS PATIENT HAS NOT BEEN ON PREDNISONE SINCE 01/13/2020 HOSPITAL DISCHARGE WILL MAKE SURE PATIENT DISCHARGED HOME WITH PREDNISONE 10 MG DAILY PATIENT DID RECEIVE SOLU-MEDROL 125 MG IV PUSH 1 TIME IN THE ED I HAVE SCHEDULED FOR PATIENT TO HAVE HYDROCORTISONE 25 MG Q.6 HOURS FOR 24 HOURS. I WOULD THEN SWITCH HIM BACK OVER TO HIS PREDNISONE 10 MG DAILY. PATIENT CURRENTLY IN BOLIVAR'S CRISIS EVIDENCE BY HIS CONFUSION, WEAKNESS, FATIGUE, LETHARGIC, AND ELECTROLYTE IMBALANCE CONTINUE NEURO CHECKS <Holley Romero MARKETING SENIOR RECRUITER-C - Last Filed: 06/03/20 11:40> (2) Hypotension: Code(s): I95.9 - Hypotension, unspecified <Holley Romero MARKETING SENIOR RECRUITER-C - Last Filed: 06/03/20 11:40> Status: Acute <Holley Romero MARKETING SENIOR RECRUITER-Jessie - Last Filed: 06/03/20 11:40> Assessment and Plan: POSSIBLY SECONDARY TO BOLIVAR'S CRISIS WILL CONTINUE TO HYDRATE PATIENT VITAL SIGNS ORDERED <Holley DoranDanette NickJAXSON - Last Filed: 06/03/20 11:40> (3) Tachycardia: Code(s): R00.0 - Tachycardia, unspecified <Holley Romero MARKETING SENIOR RECRUITER-C - Last Filed: 06/03/20 11:40> Status: Acute <Holley Romero MARKETING SENIOR RECRUITER-Jessie - Last Filed: 06/03/20 11:40> Assessment and Plan: POSSIBLY SECONDARY TO ADRENAL CRISIS WILL CONTINUE TO MONITOR VITAL SIGNS ORDERED STARTED TELEMETRY <Holley Romero MARKETING SENIOR RECRUITER-C - Last Filed: 06/03/20 11:40> (4) AMS (altered mental status): Qualifiers: Altered mental status type: somnolence Qualified Code(s): R40.0 - Somnolence <Holley Romero JAXSON - Last Filed: 06/03/20 11:40> Code(s): R41.82 - Altered mental status, unspecified <Holley Romero JAXSON - Last Filed: 06/03/20 11:40> Status: Acute <Holley Romero JAXSON - Last Filed: 06/03/20 11:40> Assessment and Plan: 2ND TO ADRENAL CRISIS REFER TO BOLIVAR'S DISEASE <Holley Romero JAXSON - Last Filed: 06/03/20 11:40> (5) Chronic kidney failure: Qualifiers: Chronic kidney disease stage: stage 3 (moderate) Qualified Code(s): N18.3 - Chronic kidney disease, stage 3 (moderate) <Holley Romero JAXSON - Last Filed: 06/03/20 11:40> Code(s): N18.9 - Chronic kidney disease, unspecified <Holley Romero JAXSON - Last Filed: 06/03/20 11:40> Status: Acute <Holley Romero JAXSON - Last Filed: 06/03/20 11:40> Assessment and Plan: RENAL FUNCTION IMPROVING WITH IV FLUIDS ON ADMISSION 2.51 CURRENTLY 1.53 WILL REPEAT IN THE A.M. BASELINE APPEARS TO BE AROUND 1.50 ? EKG INDICATE SINUS TACH WITH A HEART RATE OF 104 ? POTASSIUM LEVEL ON ADMISSION ELEVATED TO 5.6 CURRENTLY 5.1 ? TROP NEGATIVE ? UA INDICATE TRACE OF KETONES ,BILI, RBC'S, WBC'S AND TRACE OF BACTERIA ? CXR INDICATE UNREMARKABLE ? BUN/CR 14/1.53 ? AVOID NEPROTOXIC AGENTS <Holley Romero JAXSON - Last Filed: 06/03/20 11:40> (6) Adrenal crisis: Code(s): E27.2 - Addisonian crisis <Holley Romero DIANNAJessie - Last Filed: 06/03/20 11:40> Status: Acute <Holley Romero DIANNAJessie - Last Filed: 06/03/20 11:40> Assessment and Plan: PATIENT'S ACTH ON 01/08/20 WAS 22 REPEAT ACTH PENDING ACCORDING TO PATIENT PCP PATIENT SHOULD HAVE BEEN ON PREDNISONE 10 MG DAILY IT APPEARS PATIENT HAS NOT BEEN ON PREDNISONE SINCE 01/13/2020 HOSPITAL DISCHARGE WILL MAKE SURE PATIENT DISCHARGED HOME WITH PREDNISONE 10 MG DAILY PATIENT DID RECEIVE SOLU-MEDROL 125 MG IV PUSH 1 TIME IN THE ED
[2020-06-03 12:18] LABS: Hematocrit 27.2 % (37.0-46.0); Hemoglobin 9.1 g/dL (12.4-15.3)
[2020-06-03] MEDS: QUEtiapine FUMARATE 100 MG TABLET 200 MG PO (21:28)
[2020-06-03 22:08] LABS: SARS-CoV-2 RNA PCR Negative
[2020-06-04] VITALS: BP 111/65; PULSE 88; RESP 20; TEMP 36.6; O2SAT 96
[2020-06-04 04:00] VITALS: BP 102/62; PULSE 88; RESP 18; TEMP 36.7; O2SAT 95
[2020-06-04 05:31] LABS: Hematocrit 26.2 % (37.0-46.0); Hemoglobin 8.7 g/dL (12.4-15.3); Mean Corpuscular HGB Conc 33.2 g/dL (32.0-36.0); Mean Corpuscular Hemoglobin 30.4 pg (27.0-31.0); Mean Corpuscular Volume 91.6 fL (78.0-102.0); Mean Platelet Volume 9.2 fl (8.7-11.0); Platelet Count Result 377 K/mm3 (150-420); Red Blood Count 2.86 M/mm3 (4.70-6.10); Red Cell Distribution Width 13.9 % (11.6-14.4); White Blood Count 7.2 K/mm3 (4.8-10.8)
[2020-06-04] MEDS: SUCRALFATE SUSP 100 MG/ML 10 ML UDC 1000 MG PO (05:45)
[2020-06-04 05:49] LABS: Alanine Aminotransferase 30 U/L (16-63); Albumin Level 2.5 g/dL (3.4-5.0); Alkaline Phosphatase 90 U/L (46-116); Anion Gap 9.8 mmol/L (7-16); Aspartate Amino Transferase 46 U/L (15-37); Bilirubin,Total 0.4 mg/dL (0.00-1.00); Blood Urea Nitrogen 15 mg/dL (7-18); Carbon Dioxide 25 mmol/L (21-32); Chloride 107 mmol/L (98-108); Estimated CRCL calculation 36 ml/min; Estimated Glomerular Filt Rate 44; Glucose 89 mg/dL (70-99); Osmolality Calculated 285 mOsm/kg (285-295); Potassium 3.8 mmol/L (3.5-5.1); Sodium 138 mmol/L (136-145); Total Protein 5.6 g/dL (6.4-8.2)
--- NOTE | 2020-06-04 07:23 | P.PNCROSS_ITS ---
Event Note Event Note Event Note: For this patient encounter, I reviewed the IRONWORKER APPRENTICE SHOP or PA documentation, treatment plan, and medical decision making; and I had [id number] time with this patient.
--- NOTE | 2020-06-04 07:23 | PM.EVENT ---
Event Note Event Note Event Note: For this patient encounter, I reviewed the PRINCIPAL ASSOCIATE or PA documentation, treatment plan, and medical decision making; and I had [id number] time with this patient.
[2020-06-04 08:00] VITALS: BP 115/75; PULSE 84; PULSE 87; RESP 20; TEMP 36.4; O2SAT 94
[2020-06-04] MEDS: FAMOTIDINE 20 MG TABLET PO (09:25)
[2020-06-04] MEDS: SALMET XINAFT/FLUTIC PROPIN 250 MCG/50 MCG INH CAP 1 PUFF INHALATION (09:25)
[2020-06-04] MEDS: ATORVASTATIN 10 MG TABLET 20 MG PO ×2 (09:26→09:27)
[2020-06-04] MEDS: guaiFENesin 12 HR 600 MG TABCR 1200 MG PO (09:27)
[2020-06-04] MEDS: PANTOPRAZOLE 40 MG TABLET PO (09:27)
[2020-06-04] MEDS: SPIRONOLACTONE 25 MG TABLET PO (09:27)
[2020-06-04] MEDS: FUROSEMIDE 20 MG TABLET PO (09:28)
[2020-06-04] MEDS: predniSONE 10 MG TABLET PO (09:28)
--- NOTE | 2020-06-04 11:24 | P.DS_ITS ---
DS: Admitting Diagnosis Admitting Diagnosis Admitting Diagnosis: Primary adrenocortical insufficiency DS: Discharge Diagnosis Discharge Diagnosis (1) Roger's disease: Code(s): E27.1 - Primary adrenocortical insufficiency Status: Acute Assessment and Plan: * PATIENT'S ACTH ON 01/08/20 WAS 22 * REPEAT ACTH PENDING * ACCORDING TO PATIENT PCP PATIENT SHOULD HAVE BEEN ON PREDNISONE 10 MG DAILY * IT APPEARS PATIENT HAS NOT BEEN ON PREDNISONE SINCE 01/13/2020 HOSPITAL DISCHARGE * WILL MAKE SURE PATIENT DISCHARGED HOME WITH PREDNISONE 10 MG DAILY * PATIENT DID RECEIVE SOLU-MEDROL 125 MG IV PUSH 1 TIME IN THE ED * I HAVE SCHEDULED FOR PATIENT TO HAVE HYDROCORTISONE 25 MG Q.6 HOURS FOR 24 HOURS. I WOULD THEN SWITCH HIM BACK OVER TO HIS PREDNISONE 10 MG DAILY. * PATIENT CURRENTLY IN ROGER'S CRISIS EVIDENCE BY HIS CONFUSION, WEAKNESS, FATIGUE, LETHARGIC, AND ELECTROLYTE IMBALANCE (2) Hypotension: Code(s): I95.9 - Hypotension, unspecified Status: Acute Assessment and Plan: * POSSIBLY SECONDARY TO ROGER'S CRISIS * Patient will discharge with spironolactone and Lasix he will not discharge with lisinopril (3) Tachycardia: Code(s): R00.0 - Tachycardia, unspecified Status: Acute Assessment and Plan: * resolved * POSSIBLY SECONDARY TO ADRENAL CRISIS (4) AMS (altered mental status): Qualifiers: Altered mental status type: somnolence Qualified Code(s): R40.0 - Somnolence Code(s): R41.82 - Altered mental status, unspecified Status: Acute Assessment and Plan: * 2ND TO ADRENAL CRISIS * REFER TO ROGER'S DISEASE (5) Chronic kidney failure: Qualifiers: Chronic kidney disease stage: stage 3 (moderate) Qualified Code(s): N18.3 - Chronic kidney disease, stage 3 (moderate) Code(s): N18.9 - Chronic kidney disease, unspecified Status: Acute Assessment and Plan: * RENAL FUNCTION IMPROVING WITH IV FLUIDS ON ADMISSION 2.51 CURRENTLY 1.57 * BASELINE APPEARS TO BE AROUND 1.50 ? EKG INDICATE SINUS TACH WITH A HEART RATE OF 104 ? POTASSIUM LEVEL ON ADMISSION ELEVATED TO 5.6 CURRENTLY 3.6 ? TROP NEGATIVE ? UA INDICATE TRACE OF KETONES ,BILI, RBC'S, WBC'S AND TRACE OF BACTERIA ? CXR INDICATE UNREMARKABLE ? BUN/CR 15/1.57 ? AVOID NEPROTOXIC AGENTS (6) Adrenal crisis: Code(s): E27.2 - Addisonian crisis Status: Acute Assessment and Plan: * PATIENT'S ACTH ON 01/08/20 WAS 22 * REPEAT ACTH PENDING * ACCORDING TO PATIENT PCP PATIENT SHOULD HAVE BEEN ON PREDNISONE 10 MG DAILY * IT APPEARS PATIENT HAS NOT BEEN ON PREDNISONE SINCE 01/13/2020 HOSPITAL DISCHARGE * WILL MAKE SURE PATIENT DISCHARGED HOME WITH PREDNISONE 10 MG DAILY * PATIENT DID RECEIVE SOLU-MEDROL 125 MG IV PUSH 1 TIME IN THE ED * I HAVE SCHEDULED FOR PATIENT TO HAVE HYDROCORTISONE 25 MG Q.6 HOURS FOR 24 HOURS. I WOULD THEN SWITCH HIM BACK OVER TO HIS PREDNISONE 10 MG DAILY. * ROGER'S CRISIS EVIDENCE BY HIS CONFUSION, WEAKNESS, FATIGUE, LETHARGIC, AND ELECTROLYTE IMBALANCE and lack of prednisone DS: Summary Time Spent with Patient Time attestation: Total time spent providing and/or coordinating discharge services: Exam Narrative: Exam Narrative: General: A well-developed, well-nourished male sitting up in bed no acute distress. HEENT: Normocephalic, atraumatic. PERRL, EOMI. Sclerae anicteric. Oral mucosa moist. Oropharynx clear. Neck: Supple. Respiratory: Lungs are clear to auscul
--- NOTE | 2020-06-04 11:24 | PM.DS ---
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 I WOULD THEN SWITCH HIM BACK OVER TO HIS PREDNISONE 10 MG DAILY. PATIENT CURRENTLY IN ROGER'S CRISIS EVIDENCE BY HIS CONFUSION, WEAKNESS, FATIGUE, LETHARGIC, AND ELECTROLYTE IMBALANCE (2) Hypotension: Code(s): I95.9 - Hypotension, unspecified Status: Acute Assessment and Plan: POSSIBLY SECONDARY TO ROGER'S CRISIS Patient will discharge with spironolactone and Lasix he will not discharge with lisinopril (3) Tachycardia: Code(s): R00.0 - Tachycardia, unspecified Status: Acute Assessment and Plan: resolved POSSIBLY SECONDARY TO ADRENAL CRISIS (4) AMS (altered mental status): Qualifiers: Altered mental status type: somnolence Qualified Code(s): R40.0 - Somnolence Code(s): R41.82 - Altered mental status, unspecified Status: Acute Assessment and Plan: 2ND TO ADRENAL CRISIS REFER TO ROGER'S DISEASE (5) Chronic kidney failure: Qualifiers: Chronic kidney disease stage: stage 3 (moderate) Qualified Code(s): N18.3 - Chronic kidney disease, stage 3 (moderate) Code(s): N18.9 - Chronic kidney disease, unspecified Status: Acute Assessment and Plan: RENAL FUNCTION IMPROVING WITH IV FLUIDS ON ADMISSION 2.51 CURRENTLY 1.57 BASELINE APPEARS TO BE AROUND 1.50 ? EKG INDICATE SINUS TACH WITH A HEART RATE OF 104 ? POTASSIUM LEVEL ON ADMISSION ELEVATED TO 5.6 CURRENTLY 3.6 ? TROP NEGATIVE ? UA INDICATE TRACE OF KETONES ,BILI, RBC'S, WBC'S AND TRACE OF BACTERIA ? CXR INDICATE UNREMARKABLE ? BUN/CR 15/1.57 ? AVOID NEPROTOXIC AGENTS (6) Adrenal crisis: Code(s): E27.2 - Addisonian crisis Status: Acute Assessment and Plan: PATIENT'S ACTH ON 01/08/20 WAS 22 REPEAT ACTH PENDING ACCORDING TO PATIENT PCP PATIENT SHOULD HAVE BEEN ON PREDNISONE 10 MG DAILY IT APPEARS PATIENT HAS NOT BEEN ON PREDNISONE SINCE 01/13/2020 HOSPITAL DISCHARGE WILL MAKE SURE PATIENT DISCHARGED HOME WITH PREDNISONE 10 MG DAILY PATIENT DID RECEIVE SOLU-MEDROL 125 MG IV PUSH 1 TIME IN THE ED I HAVE SCHEDULED FOR PATIENT TO HAVE HYDROCORTISONE 25 MG Q.6 HOURS FOR 24 HOURS. I WOULD THEN SWITCH HIM BACK OVER TO HIS PREDNISONE 10 MG DAILY. ROGER'S CRISIS EVIDENCE BY HIS CONFUSION, WEAKNESS, FATIGUE, LETHARGIC, AND ELECTROLYTE IMBALANCE and lack of prednisone DS: Summary Time Spent with Patient Time attestation: Total time spent providing and/or coordinating discharge services: Exam Narrative: Exam Narrative: General: A well-developed, well-nourished male sitting up in bed no acute distress. HEENT: Normocephalic, atraumatic. PERRL, EOMI. Sclerae anicteric. Oral mucosa moist. Oropharynx clear. Neck: Supple. Respiratory: Lungs are clear to auscultation bilaterally. Cardiovascular: Regular rate and rhythm with S1-S2. Gastrointestinal: Abdomen is soft, nontender, and nondistended with positive bowel sounds. No organomegaly. Skin: Warm, dry, and slightly pale.. No rash or lesions on limited exam. Extremities: No cyanosis, clubbing, . Radial and pedal pulses intact. trace of edema on the right knee Neurological: Alert. Cranial nerves 2-12 are grossly intact. No gross focal deficits t
--- NOTE | 2020-06-04 12:06 | PC.NURSE ---
Report called to [facility] in [place]
[2020-06-09 05:12] LABS: Adrenocorticotropic Hormone <5 pg/mL (6-50)
[2020-06-10 06:26] LABS: Cortisol Random 61.1 mcg/dL (***)
== END 2020-06-04 11:50 | DRG 644 ==
LOC: CHSED 21:12 → CHS2ND 22:54
PROVIDERS: Nurse Practitioner; Admitting Provider Emergency Medicine; Emergency Provider Emergency Medicine; PCP Internal Medicine; Visit Provider Emergency Medicine
DX: E27.2 Addisonian crisis (principal); I50.22 Chronic systolic (congestive) heart failure; E27.1 Primary adrenocortical insufficiency; N18.3 Chronic kidney disease, stage 3 (moderate); I95.9 Hypotension, unspecified; J45.909 Unspecified asthma, uncomplicated; E78.5 Hyperlipidemia, unspecified; K21.9 Gastro-esophageal reflux disease without esophagitis; F79 Unspecified intellectual disabilities; F41.9 Anxiety disorder, unspecified
CPT/HCPCS: 36415; 70450; 72125; 73560; 80048; 80053; 81001; 82024; 82533; 83605; 83735; 83880; 84443; 85014; 85018; 85025; 85027; 87635; 93005; 96361; 96374; 96375; 97161; 97165; 97530; 99283; 99285; A9270; C9803; G0378; J1720; J2930; J7030; J7042; J7512; U0003